=== PATIENT | female | born 1940 | race Caucasian/White ===

== ENCOUNTER 2020-08-01 12:37 | Inpatient (IN) | payer MEDICARE ==
[2020-08-01] MEDS ORDERED: Sodium Chloride 0.9% 2.5 ML Syringe FLUSH PRN ×2 (12:45→16:05)
[2020-08-01] MEDS ORDERED: Sodium Chloride 0.9% 10 ML Syringe FLUSH PRN (12:45)
[2020-08-01] MEDS ORDERED: Sodium Chloride 0.9% 1,000 ML IV ONE (12:45)
--- NOTE | 2020-08-01 12:54 | EDM.PDOC ---
ED HPI GENERAL MEDICAL PROBLEM - General Chief Complaint: Back Pain or Injury Stated Complaint: SHE FELL Time Seen by Provider: 08/01/20 12:40 Source of Information: Reports: Patient History Limitations: Reports: No Limitations - History of Present Illness INITIAL COMMENTS - FREE TEXT/NARRATIVE: HISTORY AND PHYSICAL: History of present illness: Patient is an 79-year-old female who presents to the emergency room by ambulance after a fall. Patient states 2 days ago she had fallen while in the bathroom, states she lost her balance. She was able to get up and go back to bed. During the fall she noticed some thoracic and lumbar back pain, states she does have chronic mild back pain due to a thoracic injury. Saturday morning her back started hurting "so bad I let myself to the ground". She was away from her cell phone and was not able to crawl to her phone due to the back pain, she laid on the floor for 2 days. Today her craft coordinator came for scheduled cleaning and f ound her. Patient has not eaten or drank over the past 2 days, has not had a bowel movement or voided. Patient denies any fever, chills, headache, change in vision, syncope or near syncope. Denies any chest pain, shortness of breath or cough. Denies any abdominal pain, nausea, vomiting, diarrhea, constipation or dysuria. Has not noted any blood in urine or stool. Patient has not eaten and drank in 2 days. Review of systems: As per history of present illness and below otherwise all systems reviewed and negative. Past medical history: As per history of present illness and as reviewed below otherwise noncontributory. Surgical history: As per history of present illness and as reviewed below otherwise noncontributory. Social history: See social history for further information Family history: As per history of present illness and as reviewed below otherwise noncontributory. Physical exam: General: Well developed and well nourished 79 year old female. Alert and orientated x 3. Nontoxic in appearance and in no acute distress. Vital signs are stable and have been reviewed by me. Nursing notes were reviewed. HEENT: Atraumatic, normocephalic, pupils equal and reactive bilaterally, negative for conjunctival pallor or scleral icterus, mucous membranes moist, trachea midline. No drooling or trismus noted. No meningeal signs. No hot potato voice noted. Lungs: Clear to auscultation bilaterally. No wheezes, rales, or rhonchi. Chest nontender. Normal work of breathing, no accessory muscles used. Heart: S1S2, regular rate and rhythm without overt murmur, gallops, or rubs. No JVD. No peripheral edema Abdomen: Soft, nondistended, nontender. Normoactive bowel sounds. Negative for masses or costovertebral tenderness. Pelvis: Stable nontender. C-spine/Back: No pinpoint vertebral tenderness upon palpation with the exception of the lower thoracic and upper lumbar region. No crepitus, step-offs or obvious deformities. Able to push down and lift her great toe up equally bilaterally. She is moving both lower extremities upon command on the bed. Denies any urinary or fecal incontinence. Denies any numbness, tingling or saddle paresthesia. No concerns of serious infection, fracture or cord compression, or cauda equina syndrome. Deep tendon reflexes brisk bilaterally. Genitourinary/Rectal: Good rectal tone. Hemoccult negative. Skin: Intact, warm, dry. No lesions or rashes noted. Hematologic: No petechiae or purpra. Mucosa appropriate color and normal nail bed color and refill. Extremities: Atraumatic, moves all extremities per self without difficulty or deficits, negative for cords or calf pain. Neurovascular unremarkable. Neuro: Awake, alert, oriented. Cranial nerves II through XII unremarkable. Cerebellum unremarkable. Motor and sensory unremarkable throughout. Exam nonfocal. Psychiatric: Mood and affect are appropriate. Normal thought process. Answering questions appropriately. Notes: *This patient was seen and evaluated during the 2019 SARS-CoV-2 novel coronavirus pandemic period. Community viral transmission is ongoing at time of this encounter and the emergency department is operating under pandemic response procedures. Patient is an 79-year-old female who presents to the emergency room by ambulance with complaints of back pain. She states she had fallen 2+ days ago resulting in pain in her lumbar and thoracic back. When she woke up the next day she had intense pain and had to sit herself on the ground. She denies hitting her head or having any loss of consciousness. She is not able to move or get up after she let herself down to the ground. Her cleaning lady had found her and called the ambulance. Patient states she has known T12 fracture and chronic back pain. She denies any numbness, tingling, saddle paresthesia. She denies any urinary or fecal incontinence. We did roll her and I assessed her back, she does have distal thoracic and upper lumbar discomfort with palpation although no obvious step-offs noted. She has good rectal tone and is moving her legs appropriately on the bed. We will do basic lab work and CTs of the spine due to her complex history. Patient does have a urinary tract infection, urine culture has been added. Head CT shows no evidence of acute intracranial trauma. Periventricular white matter changes consistent chronic microvascular disease. Diffuse volume loss. CT cervical spine shows no evidence of acute trauma. Multilevel degenerative changes. Compression screw transfixing remote type III odontoid fracture. Thoracic CT shows [id number] T8 vertebral body superior endplate c ompression deformity of unknown acuity. No prior exams for comparison. Mild T10 inferior endplate compression rim most likely remote. Remote severe T12 compression fracture with apex of kyphosis at this level. Multilevel degenerative changes. Lumbar CT shows mild L1 superior endplate compression deformity of unknown acuity. Acute fracture cannot be excluded. Correlate with pain specifically at this level. Grade 1 anterolisthesis L4 over L5. Patient reports she has known fractures of the thoracic spine and has chronic back pain. She reports she is tender with palpation although she is "always tender" and has discomfort chronically. She reports she is comfortable laying in bed without any movement. Given the CT findings I am unsure if these are acute or chronic. Regardless with the patient living at home alone, she will likely not do well at home with the amount of pain she is having in her back. I have talked with the patient about today's findings, in addition to providing specific details for plan of care. Reassessment at the time of disposition demonstrates that the patient is in no acute distress as long as she is not moving. We discussed admission for pain management and possible rehabilitation services. Dr. Wayne was consulted and is agreeable to keeping her for further care and management. Diagnostics: CBC, CMP, CPK, UA, troponin, EKG, head/cervical /thoracic and lumbar spine CT Therapeutics: IV fluids, Rocephin Impression: Multiple compression fractures Fall Weakness UTI Plan: Admission to Med/Surg Definitive disposition and diagnosis as appropriate pending reevaluation and review of above. Lower Back Pain Score (Numeric/FACES): 5 - Related Data Allergies Allergy/AdvReac Type Severity Reaction Status Date / Time No Known Allergies Allergy Verified 08/01/20 12:40 Home Meds: Home Meds . [No Known Home Meds] 08/01/20 [History] Past Medical History - Past Health History Medical/Surgical History: Denies Medical/Surgical History Musculoskeletal History: Reports: Fracture Psychiatric History: Reports: Addiction, Other (See Below) Other Psychiatric History: alcoholic - Infectious Disease History Infectious Disease History: Reports: Chicken Pox - Past Surgical History Musculoskeletal Surgical History: Reports: Other (See Below) Other Musculoskeletal Surgeries/Procedures:: cervical fracture with pin Social & Family History - Family History Family Medical History: No Pertinent Family History - Tobacco Use Tobacco Use Status *Q: Never Tobacco User - Caffeine Use Caffeine Use: Reports: None - Recreational Drug Use Recreational Drug Use: No ED ROS GENERAL - Review of Systems Review Of Systems: Comprehensive ROS is negative, except as noted in HPI. ED EXAM,LOWER BACK PAIN/INJURY - Physical Exam Exam: See Below (See dictation) Course - Vital Signs Last Recorded V/S: Last Vital Signs Temp 98 F 08/01/20 12:40 Pulse 92 08/01/20 14:42 Resp 16 08/01/20 14:42 BP 139/78 08/01/20 14:42 Pulse Ox 95 08/01/20 14:42 - Orders/Labs/Meds Orders: Active Orders 24 hr Category Date Time Status Admission Status [Patient Status] [ADT] Stat ADT 08/01/20 14:33 Active EKG Documentation Completion [RC] STAT Care 08/01/20 13:46 Active CORONAVIRUS COVID-19 JASKARAN [MOLEC] Stat Lab 08/01/20 14:34 Received CULTURE URINE [MREF] Stat Lab 08/01/20 14:33 Received Sodium Chloride 0.9% [Normal Saline] 1,000 ml Med 08/01/20 12:45 Active IV STAT Sodium Chloride 0.9% [Saline Flush] Med 08/01/20 12:45 Active 10 ml FLUSH ASDIRECTED PRN Sodium Chloride 0.9% [Saline Flush] Med 08/01/20 12:45 Active 2.5 ml FLUSH ASDIRECTED PRN Saline Lock Insert [OM.PC] Stat Oth 08/01/20 12:45 Ordered Medication Orders Sodium Chloride (Normal Saline) 1,000 mls @ 250 mls/hr IV STAT ONE Stop: 08/01/20 16:44 Last Admin: 08/01/20 13:27 Dose: 250 mls/hr Documented by: ERVIN Sodium Chloride (Sodium Chloride 0.9% 10 Ml Syringe) 10 ml FLUSH ASDIRECTED PRN PRN Reason: Keep Vein Open Last Admin: 08/01/20 13:27 Dose: 10 ml Documented by: ERVIN Sodium Chloride (Sodium Chloride 0.9% 2.5 Ml Syringe) 2.5 ml FLUSH ASDIRECTED PRN PRN Reason: Keep Vein Open Last Admin: 08/01/20 13:27 Dose: 2.5 ml Documented by: ERVIN Labs: Laboratory Tests 08/01/20 08/01/20 08/01/20 Range/Units 13:27 13:27 13:27 WBC 11.76 H (4.0-11.0) K/uL RBC 4.04 L (4.30-5.90) M/uL Hgb 14.0 (12.0-16.0) g/dL Hct 42.1 (36.0-46.0) % MCV 104.2 H (80.0-98.0) fL MCH 34.7 H (27.0-32.0) pg MCHC 33.3 (31.0-37.0) g/dL RDW Std Deviation 50.2 (28.0-62.0) fl RDW Coeff of Otilia 13 (11.0-15.0) % Plt Count 176 (150-400) K/uL MPV 10.40 (7.40-12.00) fL Neut % (Auto) 80.8 H (48.0-80.0) % Lymph % (Auto) 11.3 L (16.0-40.0) % [place] % (Auto) 7.7 (0.0-15.0) % Eos % (Auto) 0.0 (0.0-7.0) % Baso % (Auto) 0.2 (0.0-1.5) % Neut # (Auto) 9.5 H (1.4-5.7) K/uL Lymph # (Auto) 1.3 (0.6-2.4) K/uL Lajas # (Auto) 0.9 H (0.0-0.8) K/uL Eos # (Auto) 0.0 (0.0-0.7) K/uL Baso # (Auto) 0.0 (0.0-0.1) K/uL Nucleated RBC % 0.0 /100WBC Nucleated RBCs # 0 K/uL INR Sodium 138 (136-145) mmol/L Potassium 3.9 (3.5-5.1) mmol/L Chloride 102 (98-107) mmol/L Carbon Dioxide 20.7 L (21.0-32.0) mmol/L BUN 14 (7.0-18.0) mg/dL Creatinine 0.8 (0.6-1.0) mg/dL Est Cr Clr Drug Dosing 53.63 mL/min Estimated GFR (MDRD) > 60.0 ml/min Glucose 92 (74-106) mg/dL Lactic Acid 1.6 (0.4-2.0) mmol/L Calcium 8.4 L (8.5-10.1) mg/dL Total Bilirubin 1.8 H (0.2-1.0) mg/dL AST 57 H (15-37) IU/L ALT 41 (14-63) IU/L Alkaline Phosphatase 86 (46-116) U/L Creatine Kinase 105 (26-308) U/L Troponin I (0.000-0.056) ng/mL Total Protein 7.6 (6.4-8.2) g/dL Albumin 2.8 L (3.4-5.0) g/dL Globulin 4.8 H (2.6-4.0) g/dL Albumin/Globulin Ratio 0.6 L (0.9-1.6) Urine Color Urine Appearance Urine pH (5.0-8.0) Ur Specific [place] (1.001-1.035) Urine Protein (NEGATIVE) mg/dL Urine Glucose (UA) (NEGATIVE) mg/dL Urine Ketones (NEGATIVE) mg/dL Urine Occult Blood (NEGATIVE) Urine Nitrite (NEGATIVE) Urine Bilirubin (NEGATIVE) Urine Ictotest Urine Urobilinogen (<2.0) EU/dL Ur Leukocyte Esterase (NEGATIVE) Urine RBC (0-2/HPF) Urine WBC (0-5/HPF) Ur Epithelial Cells (NONE-FEW) Calcium Oxalate Crystal (NEGATIVE) Urine Bacteria (NEGATIVE) 08/01/20 08/01/2008/01/21 Range/Units 13:27 13:27 14:33 WBC (4.0-11.0) K/uL RBC (4.30-5.90) M/uL Hgb (12.0-16.0) g/dL Hct (36.0-46.0) % MCV (80.0-98.0) fL MCH (27.0-32.0) pg MCHC (31.0-37.0) g/dL RDW Std Deviation (28.0-62.0) fl RDW Coeff of Otilia (11.0-15.0) % Plt Count (150-400) K/uL MPV (7.40-12.00) fL Neut % (Auto) (48.0-80.0) % Lymph % (Auto) (16.0-40.0) % [place] % (Auto) (0.0-15.0) % Eos % (Auto) (0.0-7.0) % Baso % (Auto) (0.0-1.5) % Neut # (Auto) (1.4-5.7) K/uL Lymph # (Auto) (0.6-2.4) K/uL [place] # (Auto) (0.0-0.8) K/uL Eos # (Auto) (0.0-0.7) K/uL Baso # (Auto) (0.0-0.1) K/uL Nucleated RBC % /100WBC Nucleated RBCs # K/uL INR 1.14 Sodium (136-145) mmol/L Potassium (3.5-5.1) mmol/L Chloride (98-107) mmol/L Carbon Dioxide (21.0-32.0) mmol/L BUN (7.0-18.0) mg/dL Creatinine (0.6-1.0) mg/dL Est Cr Clr Drug Dosing mL/min Estimated GFR (MDRD) ml/min Glucose (74-106) mg/dL Lactic Acid (0.4-2.0) mmol/L Calcium (8.5-10.1) mg/dL Total Bilirubin (0.2-1.0) mg/dL AST (15-37) IU/L ALT (14-63) IU/L Alkaline Phosphatase (46-116) U/L Creatine Kinase (26-308) U/L Troponin I < 0.050 (0.000-0.056) ng/mL Total Protein (6.4-8.2) g/dL Albumin (3.4-5.0) g/dL Globulin (2.6-4.0) g/dL Albumin/Globulin Ratio (0.9-1.6) Urine Color YELLOW Urine Appearance SLT CLOUDY Urine pH 8.0 (5.0-8.0) Ur Specific [place] 1.020 (1.001-1.035) Urine Protein TRACE H (NEGATIVE) mg/dL Urine Glucose (UA) NEGATIVE (NEGATIVE) mg/dL Urine Ketones TRACE H (NEGATIVE) mg/dL Urine Occult Blood NEGATIVE (NEGATIVE) Urine Nitrite NEGATIVE (NEGATIVE) Urine Bilirubin MODERATE H (NEGATIVE) Urine Ictotest NEGATIVE Urine Urobilinogen 2.0 H (<2.0) EU/dL Ur Leukocyte Esterase MODERATE H (NEGATIVE) Urine RBC 0-2 (0-2/HPF) Urine WBC 5-10 (0-5/HPF) Ur Epithelial Cells FEW (NONE-FEW) Calcium Oxalate Crystal FEW (NEGATIVE) Urine Bacteria 4+ H (NEGATIVE) Meds: Medications Generic Name Dose Route Start Last Admin Trade Name Freq PRN Reason Stop Dose Admin Sodium Chloride 1,000 mls @ 250 mls/hr 08/01/20 12:45 08/01/20 13:27 Normal Saline IV 08/01/20 16:44 250 mls/hr STAT ONE Administration Sodium Chloride 10 ml 08/01/20 12:45 08/01/20 13:27 Sodium Chloride 0.9% 10 Ml Syringe FLUSH 10 ml ASDIRECTED PRN Administration Keep Vein Open Sodium Chloride 2.5 ml 08/01/20 12:45 08/01/20 13:27 Sodium Chloride 0.9% 2.5 Ml Syringe FLUSH 2.5 ml ASDIRECTED PRN Administration Keep Vein Open Departure - Departure Time of Disposition: 14:31 Disposition: Admitted As Inpatient 64 Clinical Impression: Weakness Vertebral compression fracture Qualifiers: Encounter type: initial encounter Fall Qualifiers: Encounter type: initial encounter Qualified Code(s): W19.XXXA - Unspecified fall, initial encounter Urinary tract infection Qualifiers: Urinary tract infection type: acute cystitis Hematuria presence: without hematuria Qualified Code(s): N30.00 - Acute cystitis without hematuria - Discharge Information Forms: ED Department Discharge Sepsis Event Note (ED) - Evaluation Sepsis Screening Result: No Definite Risk - Focused Exam Vital Signs: Vital Signs Temp Pulse Resp BP Pulse Ox 08/01/20 14:42 92 16 139/78 95 08/01/20 13:28 86 16 134/77 95 08/01/20 12:40 98 F 91 16 143/87 H 95 - My Orders Last 24 Hours: My Active Orders 08/01/20 12:45 Sodium Chloride 0.9% [Normal Saline] 1,000 ml IV STAT Sodium Chloride 0.9% [Saline Flush] 10 ml FLUSH ASDIRECTED PRN Sodium Chloride 0.9% [Saline Flush] 2.5 ml FLUSH ASDIRECTED PRN Saline Lock Insert [OM.PC] Stat 08/01/20 13:46 EKG Documentation Completion [RC] STAT 08/01/20 14:33 Admission Status [Patient Status] [ADT] Stat CULTURE URINE [MREF] Stat 08/01/20 14:34 CORONAVIRUS COVID-19 JASKARAN [MOLEC] Stat - Assessment/Plan Last 24 Hours: My Active Orders 08/01/20 12:45 Sodium Chloride 0.9% [Normal Saline] 1,000 ml IV STAT Sodium Chloride 0.9% [Saline Flush] 10 ml FLUSH ASDIRECTED PRN Sodium Chloride 0.9% [Saline Flush] 2.5 ml FLUSH ASDIRECTED PRN Saline Lock Insert [OM.PC] Stat 08/01/20 13:46 EKG Documentation Completion [RC] STAT 08/01/20 14:33 Admission Status [Patient Status] [ADT] Stat CULTURE URINE [MREF] Stat 08/01/20 14:34 CORONAVIRUS COVID-19 JASKARAN [MOLEC] Stat
--- NOTE | 2020-08-01 13:43 | CT ---
INDICATION: Pain following fall TECHNIQUE: CT cervical spine without contrast. COMPARISON: None FINDINGS: Vertebral alignment: Alignment is normal. Vertebrae: No acute fractures. Compression screw transfixing a remote type 3 odontoid fracture. Discs and facet joints: Multilevel degenerative changes. Extraspinal findings: Prevertebral soft tissues, visualized airway, and visualized lungs are unremarkable. IMPRESSION: No evidence of acute trauma. Multilevel degenerative changes. Compression screw transfixing remote type 3 odontoid fracture. Please note that all CT scans at this facility use dose modulation, iterative reconstruction, and/or weight-based dosing when appropriate to reduce radiation dose to as low as reasonably achievable. Dictated by Tc Best MD @ 08/01/2020 1:43:[address] Tc Best @ Aug 01 2020 1:43PM
--- NOTE | 2020-08-01 13:52 | CT ---
INDICATION: Pain following fall TECHNIQUE: CT thoracic spine without contrast. COMPARISON: None FINDINGS: Vertebral alignment: Alignment is normal. Vertebrae: Remote severe compression deformity T12 vertebral body with kyphosis. Mild T10 inferior endplate compression deformity most likely remote. [id number] T8 vertebral body compression deformity of unknown acuity. Discs and facet joints: Disc spaces and facets are within normal limits. Extraspinal findings: Left lower lobe airspace opacity. Cardiomegaly IMPRESSION: [id number] T8 vertebral body superior endplate compression deformity of unknown acuity. No prior exams for comparison. Mild T10 inferior endplate compression rim most likely remote. Remote severe T12 compression fracture with apex of kyphosis at this level. Multilevel degenerative changes. Left lower lobe airspace opacity. Megaly. Please note that all CT scans at this facility use dose modulation, iterative reconstruction, and/or weight-based dosing when appropriate to reduce radiation dose to as low as reasonably achievable. Dictated by Tc Best MD @ 08/01/2020 1:49:[address] Tc Best @ Aug 01 2020 1:49PM
--- NOTE | 2020-08-01 13:54 | CT ---
INDICATION: Pain following fall TECHNIQUE: CT lumbar spine without contrast. COMPARISON: None FINDINGS: Vertebral alignment: Grade 1 anterolisthesis L4 over L5. Vertebrae: Mild L1 superior endplate compression deformity of unknown acuity. Acute fracture cannot be excluded. Correlate with pain specifically at this level. Discs and facet joints: Disc spaces and facets are within normal limits. Extraspinal findings: Prevertebral soft tissues and visualized retroperitoneum are unremarkable. IMPRESSION: Mild L1 superior endplate compression deformity of unknown acuity. Acute fracture cannot be excluded. Correlate with pain specifically at this level. Grade 1 anterolisthesis L4 over L5. Please note that all CT scans at this facility use dose modulation, iterative reconstruction, and/or weight-based dosing when appropriate to reduce radiation dose to as low as reasonably achievable. Dictated by Tc Best MD @ 08/01/2020 1:53:[address] Tc Best @ Aug 01 2020 1:53PM
[2020-08-01 13:57] LABS: BLOOD UREA NITROGEN,BUN 14 mg/dL (7.0-18.0); CARBON DIOXIDE,CO2 20.7 mmol/L (21.0-32.0); CHLORIDE,CL 102 mmol/L (98-107); GLUCOSE RANDOM 92 mg/dL (74-106); POTASSIUM,K 3.9 mmol/L (3.5-5.1); SODIUM,NA 138 mmol/L (136-145)
--- NOTE | 2020-08-01 14:00 | CT ---
INDICATION: Fall TECHNIQUE: CT head without contrast. COMPARISON: None FINDINGS: CSF spaces: Within normal limits for age. Brain parenchyma: The jaimes-white differentiation is normal. No sign of mass, hemorrhage, or midline shift. Periventricular white matter changes consistent chronic microvascular disease. Diffuse volume loss. Skull base and calvarium: The visualized paranasal sinuses and mastoid air cells demonstrate no acute or significant findings. The visualized orbits are grossly unremarkable. No skull fractures. IMPRESSION: No evidence of acute intracranial trauma. Periventricular white matter changes consistent chronic microvascular disease. Diffuse volume loss. Please note that all CT scans at this facility use dose modulation, iterative reconstruction, and/or weight-based dosing when appropriate to reduce radiation dose to as low as reasonably achievable. Dictated by Tc Best MD @ 08/01/2020 1:58:[address] Tc Best @ Aug 01 2020 1:58PM
[2020-08-01] MEDS ORDERED: cefTRIAXone 1 GM in Premix Bag 1 BAG IV ONE (15:10)
--- NOTE | 2020-08-01 15:23 | PCM.HP.2 ---
H&P History of Present Illness - General Date of Service: 08/01/20 Admit Problem/Dx: Admission Diagnosis/Problem Admission Diagnosis/Problem Compression fracture of vertebra Source of Information: Patient History Limitations: Reports: No Limitations - History of Present Illness Initial Comments - Free Text/Narative: This 79-year-old female with past medical history of T12 fracture presented to the ED after a fall 2 days ago. She reports that she fell while in the bathroom after losing her balance. She was able to get back up and go back to bed. After the fall she did notice some lower back pain and reports that she does have this chronically due to history of T12 fracture. On Saturday she reports her back was hurting more that she left her after the wound and was away from cell phone and was unable to get to her phone call for help. She laid on the floor for approximately 2 days until her mechanical fitter came today and found her. She reports she has not eaten or drink over the last 2 days has not had bowel movements or voided. She denies any saddle paresthesias or incontinence of stool or urine. She denies any fevers chills headache. She denies any syncopal episodes. Denies any chest pain, shortness of breath or cough. She denies any abdominal pain nausea vomiting diarrhea black or bloody bowel movements. She denies hitting her head or any loss of consciousness. Denies any tobacco use or recreational drug use. She does drink 1-2 drinks of vodka nightly but son and her both deny any sort of withdrawals at any point. In the ER extensive imaging completed of spine due to back pain and fall. Cervical spine CT reveals multilevel degenerative changes. Compression screw transfixing remote type III odontoid fracture. Thoracic CT reveals mild to moderate T8 vertebral body superior endplate compression deformity of unknown acuity. Mild T10 inferior endplate compression room most likely remote. Remote severe T12 burst fracture with apex of kyphosis at this point multilevel degenerative changes left lower airspace opacity. Lumbar spine CT reveals mild L1 superior endplate compression deformity of unknown acuity acute fracture cannot be excluded. Grade 1 anterolisthesis L4 over L5. Head CT obtained which reveals no evidence of acute intracranial trauma. Periventricular white matter consistent chronic microvascular disease. Diffuse volume loss. Labs in the ER obtained which reveals mild leukocytosis 11,000 hemoglobin 14.0 hematocrit 42.1 INR 1.14. Sodium 38 potassium 3.9 bicarb 20.7. BUN and creatinine 14 and 0.8 respectively. Bilirubin 1.8 AST 57 ALT 41 alk phos 86 CPK obtained which was 105. Troponin negative. UA pending. In the ER she was treated with 1 L normal saline vital signs otherwise stable heart rate 86 blood pressure 134/77 respiratory rate 16 on room air satting 95%. Patient unable to ambulate due to severity of pain. Patient will be admitted inpatient for intractable back pain related to acute on chronic compression fractures of thoracic and lumbar spine. Son Antony presented to the ER room who helped some with history. He reports that they just went shopping on Saturday evening and have not seen her since. They are in agreement that rehabilitation if she is unable to be up care of herself would be the best option at this point. He will discuss with brother as well. Patient does live alone after her approximately 1 year ago. Lower Back Pain Score (Numeric/FACES): 5 - Related Data Allergies/Adverse Reactions: Allergies Allergy/AdvReac Type Severity Reaction Status Date / Time No Known Allergies Allergy Verified 08/01/20 12:40 Home Medications: Home Meds . [No Known Home Meds] 08/01/20 [History] Past Medical History - Past Health History Medical/Surgical History: Denies Medical/Surgical History Cardiovascular History: Reports: None. Denies: Afib, Blood Clots/VTE/DVT, CAD, GA, Stents Respiratory History: Reports: None. Denies: Asthma, COPD, SOB Gastrointestinal History: Reports: None. Denies: GERD Musculoskeletal History: Reports: Fracture (thoracic) Psychiatric History: Reports: Depression Endocrine/Metabolic History: Reports: None. Denies: Diabetes, Type II, Obesity/BMI 30+ - Infectious Disease History Infectious Disease History: Reports: Chicken Pox - Past Surgical History Female Surgical History: Reports: Section (x3) Musculoskeletal Surgical History: Reports: Other (See Below) Other Musculoskeletal Surgeries/Procedures:: cervical fracture with pin, ORIF hip Social & Family History - Family History Family Medical History: No Pertinent Family History - Tobacco Use Tobacco Use Status *Q: Never Tobacco User - Caffeine Use Caffeine Use: Reports: None - Alcohol Use Alcohol Use History: Yes Days Per Week of Alcohol Use: 7 Number of Drinks Per Day: 2 Total Drinks Per Week: 14 Alcohol Use Frequency: Daily - Recreational Drug Use Recreational Drug Use: No - Living Situation & Occupation Living situation: Reports: , Alone Occupation: Retired Social History Comment: two sons in town and has mechanical 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 Denies: Fever, Chills, Malaise, Weakness HEENT: Reports: No Symptoms. Denies: Headaches, Sinus Congestion, Vertigo Pulmonary: Reports: No Symptoms. Denies: Shortness of Breath Cardiovascular: Reports: No Symptoms. Denies: Chest Pain, Palpitations Gastrointestinal: Reports: No Symptoms. Denies: Abdominal Pain, Black Stool, Bloody Stool, Diarrhea, Nausea, Vomiting Genitourinary: Reports: No Symptoms. Denies: Dysuria, Frequency, Burning, Incontinence, Retention Musculoskeletal: Reports: Back Pain (across lower back, worsened with movement) Skin: Reports: No Symptoms. Denies: Wound Psychiatric: Reports: No Symptoms Neurological: Reports: Difficulty Walking (Due to low back pain). Denies: Paresthesia, Weakness Hematologic/Lymphatic: Reports: No Symptoms Immunologic: Reports: No Symptoms Exam - Exam Exam: See Below - Vital Signs Vital Signs: Last Vital Signs Temp 98 F 08/01/20 12:40 Pulse 92 08/01/20 14:42 Resp 16 08/01/20 14:42 BP 139/78 08/01/20 14:42 Pulse Ox 95 08/01/20 14:42 Weight: 63.503 kg - Exam General: Alert, Oriented, Cooperative, Other (Very hard of hearing hearing aids not present with patient) HEENT: Conjunctiva Clear, Posterior Pharynx Clear. No: Mucosa Moist & [place] (Dry) Lungs: Clear to Auscultation, Normal Respiratory Effort Cardiovascular: Regular Rate, Regular Rhythm. No: Irregular Rhythm, Tachycardia, Systolic Murmur GI/Abdominal Exam: Normal Bowel Sounds. No: Soft, Non-Tender Rectal (Female) Exam: Normal Rectal Tone Back Exam: Decreased Range of Motion, Vertebral Tenderness (Lumbar spine). No: Full Range of Motion, CVA Tenderness (L), CVA Tenderness (R) Extremities: Normal Inspection, Normal Range of Motion, Non-Tender, No Pedal Edema Neurological: Reflexes Equal Bilateral, Strength Equal Bilateral, Other (Pain elicited on straight leg raise of right leg. No numbness or tingling noted to lower extremities pain noted to patient of lumbar spine and and paraspinal as well in the musculature. No muscle spasms noted). No: Normal Gait Neuro Extensive - Mental Status: Alert, Oriented x3 Neuro Extensive - Motor, Sensory, Reflexes: CN II-XII Intact, Normal Reflexes. No: Normal Gait Psychiatric: Alert, Normal Affect, Normal Mood. No: Hallucinations, Withdrawal Symptoms - Patient Data Lab Results Last 24 hrs: Laboratory Results - last 24 hr 08/01/20 08/01/20 08/01/20 Range/Units 13:27 13:27 13:27 WBC 11.76 H (4.0-11.0) K/uL RBC 4.04 L (4.30-5.90) M/uL Hgb 14.0 (12.0-16.0) g/dL Hct 42.1 (36.0-46.0) % MCV 104.2 H (80.0-98.0) fL MCH 34.7 H (27.0-32.0) pg MCHC 33.3 (31.0-37.0) g/dL RDW Std Deviation 50.2 (28.0-62.0) fl RDW Coeff of Otilia 13 (11.0-15.0) % Plt Count 176 (150-400) K/uL MPV 10.40 (7.40-12.00) fL Neut % (Auto) 80.8 H (48.0-80.0) % Lymph % (Auto) 11.3 L (16.0-40.0) % [place] % (Auto) 7.7 (0.0-15.0) % Eos % (Auto) 0.0 (0.0-7.0) % Baso % (Auto) 0.2 (0.0-1.5) % Neut # (Auto) 9.5 H (1.4-5.7) K/uL Lymph # (Auto) 1.3 (0.6-2.4) K/uL [place] # (Auto) 0.9 H (0.0-0.8) K/uL Eos # (Auto) 0.0 (0.0-0.7) K/uL Baso # (Auto) 0.0 (0.0-0.1) K/uL Nucleated RBC % 0.0 /100WBC Nucleated RBCs # 0 K/uL INR Sodium 138 (136-145) mmol/L Potassium 3.9 (3.5-5.1) mmol/L Chloride 102 (98-107) mmol/L Carbon Dioxide 20.7 L (21.0-32.0) mmol/L BUN 14 (7.0-18.0) mg/dL Creatinine 0.8 (0.6-1.0) mg/dL Est Cr Clr Drug Dosing 53.63 mL/min Estimated GFR (MDRD) > 60.0 ml/min Glucose 92 (74-106) mg/dL Lactic Acid 1.6 (0.4-2.0) mmol/L Calcium 8.4 L (8.5-10.1) mg/dL Total Bilirubin 1.8 H (0.2-1.0) mg/dL AST 57 H (15-37) IU/L ALT 41 (14-63) IU/L Alkaline Phosphatase 86 (46-116) U/L Creatine Kinase 105 (26-308) U/L Troponin I (0.000-0.056) ng/mL Total Protein 7.6 (6.4-8.2) g/dL Albumin 2.8 L (3.4-5.0) g/dL Globulin 4.8 H (2.6-4.0) g/dL Albumin/Globulin Ratio 0.6 L (0.9-1.6) Urine Color Urine Appearance Urine pH (5.0-8.0) Ur Specific [place] (1.001-1.035) Urine Protein (NEGATIVE) mg/dL Urine Glucose (UA) (NEGATIVE) mg/dL Urine Ketones (NEGATIVE) mg/dL Urine Occult Blood (NEGATIVE) Urine Nitrite (NEGATIVE) Urine Bilirubin (NEGATIVE) Urine Ictotest Urine Urobilinogen (<2.0) EU/dL Ur Leukocyte Esterase (NEGATIVE) Urine RBC (0-2/HPF) Urine WBC (0-5/HPF) Ur Epithelial Cells (NONE-FEW) Calcium Oxalate Crystal (NEGATIVE) Urine Bacteria (NEGATIVE) 08/01/20 08/01/20 08/01/20 Range/Units 13:27 13:27 14:33 WBC (4.0-11.0) K/uL RBC (4.30-5.90) M/uL Hgb (12.0-16.0) g/dL Hct (36.0-46.0) % MCV (80.0-98.0) fL MCH (27.0-32.0) pg MCHC (31.0-37.0) g/dL RDW Std Deviation (28.0-62.0) fl RDW Coeff of Otilia (11.0-15.0) % Plt Count (150-400) K/uL MPV (7.40-12.00) fL Neut % (Auto) (48.0-80.0) % Lymph % (Auto) (16.0-40.0) % [place] % (Auto) (0.0-15.0) % Eos % (Auto) (0.0-7.0) % Baso % (Auto) (0.0-1.5) % Neut # (Auto) (1.4-5.7) K/uL Lymph # (Auto) (0.6-2.4) K/uL [place] # (Auto) (0.0-0.8) K/uL Eos # (Auto) (0.0-0.7) K/uL Baso # (Auto) (0.0-0.1) K/uL Nucleated RBC % /100WBC Nucleated RBCs # K/uL INR 1.14 Sodium (136-145) mmol/L Potassium (3.5-5.1) mmol/L Chloride (98-107) mmol/L Carbon Dioxide (21.0-32.0) mmol/L BUN (7.0-18.0) mg/dL Creatinine (0.6-1.0) mg/dL Est Cr Clr Drug Dosing mL/min Estimated GFR (MDRD) ml/min Glucose (74-106) mg/dL Lactic Acid (0.4-2.0) mmol/L Calcium (8.5-10.1) mg/dL Total Bilirubin (0.2-1.0) mg/dL AST (15-37) IU/L ALT (14-63) IU/L Alkaline Phosphatase (46-116) U/L Creatine Kinase (26-308) U/L Troponin I < 0.050 (0.000-0.056) ng/mL Total Protein (6.4-8.2) g/dL Albumin (3.4-5.0) g/dL Globulin (2.6-4.0) g/dL Albumin/Globulin Ratio (0.9-1.6) Urine Color YELLOW Urine Appearance SLT CLOUDY Urine pH 8.0 (5.0-8.0) Ur Specific [place] 1.020 (1.001-1.035) Urine Protein TRACE H (NEGATIVE) mg/dL Urine Glucose (UA) NEGATIVE (NEGATIVE) mg/dL Urine Ketones TRACE H (NEGATIVE) mg/dL Urine Occult Blood NEGATIVE (NEGATIVE) Urine Nitrite NEGATIVE (NEGATIVE) Urine Bilirubin MODERATE H (NEGATIVE) Urine Ictotest NEGATIVE Urine Urobilinogen 2.0 H (<2.0) EU/dL Ur Leukocyte Esterase MODERATE H (NEGATIVE) Urine RBC 0-2 (0-2/HPF) Urine WBC 5-10 (0-5/HPF) Ur Epithelial Cells FEW (NONE-FEW) Calcium Oxalate Crystal FEW (NEGATIVE) Urine Bacteria 4+ H (NEGATIVE) Result Diagrams: 08/01/20 13:27 08/01/20 13:27 Sepsis Event Note - Evaluation Sepsis Screening Result: No Definite Risk - Focused Exam Vital Signs: Vital Signs Temp Pulse Resp BP Pulse Ox 08/01/20 14:42 92 16 139/78 95 08/01/20 13:28 86 16 134/77 95 08/01/20 12:40 98 F 91 16 143/87 H 95 - Problem List (1) Fall SNOMED Code(s): 0247409, 296296103 ICD Code: W19.XXXA - UNSPECIFIED FALL, INITIAL ENCOUNTER Status: Acute Current Visit: Yes Qualifiers: Encounter type: initial encounter Qualified Code(s): W19.XXXA - Unspecified fall, initial encounter (2) Urinary tract infection SNOMED Code(s): 85931078 ICD Code: N39.0 - URINARY TRACT INFECTION, SITE NOT SPECIFIED Status: Acute Current Visit: Yes Qualifiers: Urinary tract infection type: acute cystitis Hematuria presence: without hematuria Qualified Code(s): N30.00 - Acute cystitis without hematuria (3) Anterolisthesis SNOMED Code(s): 666036946 ICD Code: M43.10 - SPONDYLOLISTHESIS, SITE UNSPECIFIED Status: Acute Current Visit: Yes (4) Fracture of lumbar spine without cord injury SNOMED Code(s): 51757549, 162470995 ICD Code: S32.009A - UNSP FRACTURE OF UNSP LUMBAR VERTEBRA, INIT FOR CLOS FX Status: Acute Current Visit: Yes (5) Self-care deficit SNOMED Code(s): 301388272 ICD Code: Z78.9 - OTHER SPECIFIED HEALTH STATUS Status: Acute Current Visit: Yes (6) Thoracic compression fracture SNOMED Code(s): 455645419 ICD Code: S22.000A - WEDGE COMPRESSION FRACTURE OF UNSP THORACIC VERTEBRA, INIT Status: Chronic Current Visit: Yes Qualifiers: Thoracic vertebra fracture level: T12 (7) Depression SNOMED Code(s): 04351170 ICD Code: F32.9 - MAJOR DEPRESSIVE DISORDER, SINGLE EPISODE, UNSPECIFIED Status: Chronic Current Visit: Yes Problem List Initiated/Reviewed/Updated: Yes Orders Last 24hrs: Active Orders 24 hr Category Date Time Status Admission Status [Patient Status] [ADT] Stat ADT 08/01/20 14:33 Active EKG Documentation Completion [RC] STAT Care 08/01/20 13:46 Active CORONAVIRUS COVID-19 JASKARAN [MOLEC] Stat Lab 08/01/20 14:22 Ordered CULTURE URINE [MREF] Stat Lab 08/01/20 14:33 Received Sodium Chloride 0.9% [Normal Saline] 1,000 ml Med 08/01/20 12:45 Active IV STAT Sodium Chloride 0.9% [Saline Flush] Med 08/01/20 12:45 Active 10 ml FLUSH ASDIRECTED PRN Sodium Chloride 0.9% [Saline Flush] Med 08/01/20 12:45 Active 2.5 ml FLUSH ASDIRECTED PRN cefTRIAXone [Rocephin in Dextrose,Iso-Osm 1 GM/50 ML] 1 Med 08/01/20 15:10 Active gm Premix Bag 1 bag IV ONETIME Saline Lock Insert [OM.PC] Stat Oth 08/01/20 12:45 Ordered Medication Orders Sodium Chloride (Normal Saline) 1,000 mls @ 250 mls/hr IV STAT ONE Stop: 08/01/20 16:44 Last Admin: 08/01/20 13:27 Dose: 250 mls/hr Documented by: ERVIN Ceftriaxone Sodium/Dextrose 1 (gm/ Premix) 50 mls @ 100 mls/hr IV ONETIME ONE Stop: 08/01/20 15:39 Sodium Chloride (Sodium Chloride 0.9% 10 Ml Syringe) 10 ml FLUSH ASDIRECTED PRN PRN Reason: Keep Vein Open Last Admin: 08/01/20 13:27 Dose: 10 ml Documented by: ERVIN Sodium Chloride (Sodium Chloride 0.9% 2.5 Ml Syringe) 2.5 ml FLUSH ASDIRECTED PRN PRN Reason: Keep Vein Open Last Admin: 08/01/20 13:27 Dose: 2.5 ml Documented by: ERVIN Assessment/Plan Comment:: This 79-year-old female admitted with recent fall along with acute on chronic low back pain 1. Acute on chronic back pain -T12 compression fracture was noted previously, T10 appears to be remote as well. New L1 endplate compression fracture along with anterolisthesis of L 4 on L5 is noted. -Patient tenderness to spine is more noted lumbar spine. No neurological findings. -No saddle paresthesias noted -Pain control with Tylenol as needed along with low dose Motrin - Consider oxycodone for severe pain -PT to evaluate and treat -Consult case management for likely placement due to inability to care for herself at this time at home with increasing back pain. -Supplement calcium and vitamin D - UA reveals UTI - Monitor on telemetry, unsure if syncopal event. She reports losing balance. 2. Opacity noted left lung base -No symptoms of pneumonia -We will obtain chest x-ray 3. UTI - UC pending - Continue Rocephin 4. Daily alcohol use -Denies withdrawal in the past -Thiamine and folic acid supplementation daily -Monitor CIWAA in case of withdrawals VTE prophylaxis: Heparin Consults: Case Management/social work for placement CODE STATUS: Full code Dispo: 2-3 days pending improvement
[2020-08-01] MEDS ORDERED: Ibuprofen 200 MG Tab PO PRN (16:05)
[2020-08-01] MEDS ORDERED: Polyethylene Glycol 3350 Powder 17 GM Packet PO PRN (16:05)
[2020-08-01] MEDS ORDERED: Ondansetron 4 MG/2 ML SDV IVPUSH PRN (16:05)
[2020-08-01] MEDS ORDERED: Acetaminophen 325 MG Tab PO PRN (16:05)
[2020-08-01] MEDS ORDERED: Bisacodyl 10 MG Supp RECTAL PRN (16:17)
[2020-08-01] MEDS ORDERED: LORazepam 2 MG/ML SDV IVPUSH PRN (16:20)
--- NOTE | 2020-08-01 16:54 | CR ---
INDICATION: Opacity on CT scan TECHNIQUE: Chest 1 view. COMPARISON: CT scan abdomen pelvis 08/01/2020 FINDINGS: Cardiovascular and mediastinum: Megaly. Mediastinum is within normal limits. Lungs and pleural space: Left lower lobe opacity. No sign of pleural effusion. No pneumothorax. Bones and soft tissues: No significant findings. IMPRESSION: Left lower lobe opacity worrisome for pneumonia. Follow-up recommended. Dictated by Tc Best MD @ 08/01/2020 4:52:[address] Tc Best @ Aug 01 2020 4:52PM
[2020-08-01] MEDS: Heparin Sodium 5,000 Units/ML Vial SUBCUT SCH (16:58)
[2020-08-01] MEDS: Sodium Chloride 0.9% 1,000 ML IV SCH (16:58)
--- NOTE | 2020-08-01 20:10 | PCM.EKG ---
#1 Interpretation EKG Date: 08/01/20 Time: 14:35 Rhythm: NSR Rate (Beats/Min): 82 [place]: Normal P-Wave: Present QRS: Normal ST-T: Other (No elevation or depression T wave inversions in III, avf, V4-V6) QT: Normal Comparison: No Change (12/10/15) EKG Interpretation Comments: Sinus Rhythm with Inferior and Lateral T wave inversions unchanged
[2020-08-01] MEDS: Thiamine 100 MG Tab PO SCH (21:00)
[2020-08-01] MEDS: Docusate Sodium 100 MG Cap PO SCH (21:00)
[2020-08-01] MEDS: Folic Acid 1 MG Tab PO SCH (21:00)
[2020-08-01] MEDS: Azithromycin 250 MG Tab PO SCH (21:00)
[2020-08-02] MEDS: Sodium Chloride 0.9% 1,000 ML IV SCH ×3 (00:14→20:34)
[2020-08-02] MEDS: Heparin Sodium 5,000 Units/ML Vial SUBCUT SCH ×2 (04:36→16:15)
[2020-08-02 06:14] LABS: BLOOD UREA NITROGEN,BUN 14 mg/dL (7.0-18.0); CARBON DIOXIDE,CO2 20.5 mmol/L (21.0-32.0); CHLORIDE,CL 105 mmol/L (98-107); GLUCOSE RANDOM 89 mg/dL (74-106); POTASSIUM,K 3.3 mmol/L (3.5-5.1); SODIUM,NA 139 mmol/L (136-145)
--- NOTE | 2020-08-02 08:03 | PCM.PN ---
- General Info Date of Service: 08/02/20 Admission Dx/Problem (Free Text): Admission Diagnosis/Problem Admission Diagnosis/Problem Compression fracture of vertebra Subjective Update: Continues to have low back pain especially with movement of waist and legs. Reports no pain when she is at rest. Denies any chest pain shortness of breath. Reports mild cough with pleuritic pain. No other concerns this morning. Functional Status: Reports: Pain Controlled, Tolerating Diet, Urinating. Denies: Ambulating - Review of Systems General: Reports: Weakness HEENT: Reports: No Symptoms. Denies: Headaches, Sore Throat, Visual Changes Pulmonary: Reports: No Symptoms. Denies: Shortness of Breath Cardiovascular: Reports: No Symptoms. Denies: Chest Pain, Palpitations Gastrointestinal: Reports: No Symptoms. Denies: Abdominal Pain, Nausea, Vomiting Genitourinary: Reports: No Symptoms. Denies: Dysuria, Frequency Musculoskeletal: Reports: Back Pain Skin: Reports: No Symptoms Neurological: Reports: No Symptoms. Denies: Paresthesia, Tingling Psychiatric: Reports: No Symptoms - Patient Data Vitals - Most Recent: Last Vital Signs Temp 97.3 F 08/02/20 04:00 Pulse 86 08/02/20 04:00 Resp 17 08/02/20 04:00 BP 153/85 H 08/02/20 04:00 Pulse Ox 95 08/02/20 04:00 Weight - Most Recent: 58.5 kg I&O - Last 24 Hours: Intake & Output 08/01/20 08/02/20 08/02/20 22:59 06:59 14:59 Intake Total 350 Balance 350 Lab Results Last 24 Hours: Laboratory Results - last 24 hr 08/01/20 08/01/20 08/01/20 Range/Units 13:27 13:27 13:27 WBC 11.76 H (4.0-11.0) K/uL RBC 4.04 L (4.30-5.90) M/uL Hgb 14.0 (12.0-16.0) g/dL Hct 42.1 (36.0-46.0) % MCV 104.2 H (80.0-98.0) fL MCH 34.7 H (27.0-32.0) pg MCHC 33.3 (31.0-37.0) g/dL RDW Std Deviation 50.2 (28.0-62.0) fl RDW Coeff of Otilia 13 (11.0-15.0) % Plt Count 176 (150-400) K/uL MPV 10.40 (7.40-12.00) fL Neut % (Auto) 80.8 H (48.0-80.0) % Lymph % (Auto) 11.3 L (16.0-40.0) % Lanier % (Auto) 7.7 (0.0-15.0) % Eos % (Auto) 0.0 (0.0-7.0) % Baso % (Auto) 0.2 (0.0-1.5) % Neut # (Auto) 9.5 H (1.4-5.7) K/uL Lymph # (Auto) 1.3 (0.6-2.4) K/uL Lanier # (Auto) 0.9 H (0.0-0.8) K/uL Eos # (Auto) 0.0 (0.0-0.7) K/uL Baso # (Auto) 0.0 (0.0-0.1) K/uL Nucleated RBC % 0.0 /100WBC Nucleated RBCs # 0 K/uL INR Sodium 138 (136-145) mmol/L Potassium 3.9 (3.5-5.1) mmol/L Chloride 102 (98-107) mmol/L Carbon Dioxide 20.7 L (21.0-32.0) mmol/L BUN 14 (7.0-18.0) mg/dL Creatinine 0.8 (0.6-1.0) mg/dL Est Cr Clr Drug Dosing 53.63 mL/min Estimated GFR (MDRD) > 60.0 ml/min Glucose 92 (74-106) mg/dL Lactic Acid 1.6 (0.4-2.0) mmol/L Calcium 8.4 L (8.5-10.1) mg/dL Magnesium (1.8-2.4) mg/dL Total Bilirubin 1.8 H (0.2-1.0) mg/dL AST 57 H (15-37) IU/L ALT 41 (14-63) IU/L Alkaline Phosphatase 86 (46-116) U/L Creatine Kinase 105 (26-308) U/L Troponin I (0.000-0.056) ng/mL Total Protein 7.6 (6.4-8.2) g/dL Albumin 2.8 L (3.4-5.0) g/dL Globulin 4.8 H (2.6-4.0) g/dL Albumin/Globulin Ratio 0.6 L (0.9-1.6) Urine Color Urine Appearance Urine pH (5.0-8.0) Ur Specific Culver (1.001-1.035) Urine Protein (NEGATIVE) mg/dL Urine Glucose (UA) (NEGATIVE) mg/dL Urine Ketones (NEGATIVE) mg/dL Urine Occult Blood (NEGATIVE) Urine Nitrite (NEGATIVE) Urine Bilirubin (NEGATIVE) Urine Ictotest Urine Urobilinogen (<2.0) EU/dL Ur Leukocyte Esterase (NEGATIVE) Urine RBC (0-2/HPF) Urine WBC (0-5/HPF) Ur Epithelial Cells (NONE-FEW) Calcium Oxalate Crystal (NEGATIVE) Urine Bacteria (NEGATIVE) SARS-CoV-2 RNA (JASKARAN) (NEGATIVE) 08/01/20 08/01/20 08/01/20 Range/Units 13:27 13:27 14:33 WBC (4.0-11.0) K/uL RBC (4.30-5.90) M/uL Hgb (12.0-16.0) g/dL Hct (36.0-46.0) % MCV (80.0-98.0) fL MCH (27.0-32.0) pg MCHC (31.0-37.0) g/dL RDW Std Deviation (28.0-62.0) fl RDW Coeff of Otilia (11.0-15.0) % Plt Count (150-400) K/uL MPV (7.40-12.00) fL Neut % (Auto) (48.0-80.0) % Lymph % (Auto) (16.0-40.0) % Lanier % (Auto) (0.0-15.0) % Eos % (Auto) (0.0-7.0) % Baso % (Auto) (0.0-1.5) % Neut # (Auto) (1.4-5.7) K/uL Lymph # (Auto) (0.6-2.4) K/uL Lanier # (Auto) (0.0-0.8) K/uL Eos # (Auto) (0.0-0.7) K/uL Baso # (Auto) (0.0-0.1) K/uL Nucleated RBC % /100WBC Nucleated RBCs # K/uL INR 1.14 Sodium (136-145) mmol/L Potassium (3.5-5.1) mmol/L Chloride (98-107) mmol/L Carbon Dioxide (21.0-32.0) mmol/L BUN (7.0-18.0) mg/dL Creatinine (0.6-1.0) mg/dL Est Cr Clr Drug Dosing mL/min Estimated GFR (MDRD) ml/min Glucose (74-106) mg/dL Lactic Acid (0.4-2.0) mmol/L Calcium (8.5-10.1) mg/dL Magnesium (1.8-2.4) mg/dL Total Bilirubin (0.2-1.0) mg/dL AST (15-37) IU/L ALT (14-63) IU/L Alkaline Phosphatase (46-116) U/L Creatine Kinase (26-308) U/L Troponin I < 0.050 (0.000-0.056) ng/mL Total Protein (6.4-8.2) g/dL Albumin (3.4-5.0) g/dL Globulin (2.6-4.0) g/dL Albumin/Globulin Ratio (0.9-1.6) Urine Color YELLOW Urine Appearance SLT CLOUDY Urine pH 8.0 (5.0-8.0) Ur Specific Culver 1.020 (1.001-1.035) Urine Protein TRACE H (NEGATIVE) mg/dL Urine Glucose (UA) NEGATIVE (NEGATIVE) mg/dL Urine Ketones TRACE H (NEGATIVE) mg/dL Urine Occult Blood NEGATIVE (NEGATIVE) Urine Nitrite NEGATIVE (NEGATIVE) Urine Bilirubin MODERATE H (NEGATIVE) Urine Ictotest NEGATIVE Urine Urobilinogen 2.0 H (<2.0) EU/dL Ur Leukocyte Esterase MODERATE H (NEGATIVE) Urine RBC 0-2 (0-2/HPF) Urine WBC 5-10 (0-5/HPF) Ur Epithelial Cells FEW (NONE-FEW) Calcium Oxalate Crystal FEW (NEGATIVE) Urine Bacteria 4+ H (NEGATIVE) SARS-CoV-2 RNA (JASKARAN) (NEGATIVE) 08/01/20 08/02/20 08/02/20 Range/Units 14:34 05:30 05:30 WBC 9.39 (4.0-11.0) K/uL RBC 3.49 L (4.30-5.90) M/uL Hgb 12.3 (12.0-16.0) g/dL Hct 36.5 (36.0-46.0) % MCV 104.6 H (80.0-98.0) fL MCH 35.2 H (27.0-32.0) pg MCHC 33.7 (31.0-37.0) g/dL RDW Std Deviation 50.7 (28.0-62.0) fl RDW Coeff of Otilia 14 (11.0-15.0) % Plt Count 153 (150-400) K/uL MPV 10.70 (7.40-12.00) fL Neut % (Auto) 57.8 (48.0-80.0) % Lymph % (Auto) 28.5 (16.0-40.0) % Lanier % (Auto) 12.5 (0.0-15.0) % Eos % (Auto) 0.9 (0.0-7.0) % Baso % (Auto) 0.3 (0.0-1.5) % Neut # (Auto) 5.4 (1.4-5.7) K/uL Lymph # (Auto) 2.7 H (0.6-2.4) K/uL Lanier # (Auto) 1.2 H (0.0-0.8) K/uL Eos # (Auto) 0.1 (0.0-0.7) K/uL Baso # (Auto) 0.0 (0.0-0.1) K/uL Nucleated RBC % 0.0 /100WBC Nucleated RBCs # 0 K/uL INR Sodium 139 (136-145) mmol/L Potassium 3.3 L (3.5-5.1) mmol/L Chloride 105 (98-107) mmol/L Carbon Dioxide 20.5 L (21.0-32.0) mmol/L BUN 14 (7.0-18.0) mg/dL Creatinine 0.7 (0.6-1.0) mg/dL Est Cr Clr Drug Dosing 58.21 mL/min Estimated GFR (MDRD) > 60.0 ml/min Glucose 89 (74-106) mg/dL Lactic Acid (0.4-2.0) mmol/L Calcium 7.6 L (8.5-10.1) mg/dL Magnesium 1.3 L (1.8-2.4) mg/dL Total Bilirubin (0.2-1.0) mg/dL AST (15-37) IU/L ALT (14-63) IU/L Alkaline Phosphatase (46-116) U/L Creatine Kinase (26-308) U/L Troponin I (0.000-0.056) ng/mL Total Protein (6.4-8.2) g/dL Albumin (3.4-5.0) g/dL Globulin (2.6-4.0) g/dL Albumin/Globulin Ratio (0.9-1.6) Urine Color Urine Appearance Urine pH (5.0-8.0) Ur Specific Culver (1.001-1.035) Urine Protein (NEGATIVE) mg/dL Urine Glucose (UA) (NEGATIVE) mg/dL Urine Ketones (NEGATIVE) mg/dL Urine Occult Blood (NEGATIVE) Urine Nitrite (NEGATIVE) Urine Bilirubin (NEGATIVE) Urine Ictotest Urine Urobilinogen (<2.0) EU/dL Ur Leukocyte Esterase (NEGATIVE) Urine RBC (0-2/HPF) Urine WBC (0-5/HPF) Ur Epithelial Cells (NONE-FEW) Calcium Oxalate Crystal (NEGATIVE) Urine Bacteria (NEGATIVE) SARS-CoV-2 RNA (JASKARAN) NEGATIVE (NEGATIVE) Med Orders - Current: Current Medications Acetaminophen (Acetaminophen 325 Mg Tab) 650 mg PO Q4H PRN PRN Reason: Pain (mild 1-3) Azithromycin (Azithromycin 250 Mg Tab) 500 mg PO Q24H [facility] Last Admin: 08/01/20 21:00 Dose: 500 mg Documented by: Bisacodyl (Bisacodyl 10 Mg Supp) 10 mg RECTAL DAILY PRN PRN Reason: if no BM in 3 days Calcium Carbonate (Calcium Carbonate/Vitamin D3 1500 Mg-400 Units Tab) 1 tab PO DAILY [facility] Docusate Sodium (Docusate Sodium 100 Mg Cap) 100 mg PO BID [facility] Last Admin: 08/01/20 21:00 Dose: 100 mg Documented by: Folic Acid (Folic Acid 1 Mg Tab) 1 mg PO BEDTIME [facility] Last Admin: 08/01/20 21:00 Dose: 1 mg Documented by: Heparin Sodium (Porcine) (Heparin Sodium 5,000 Units/Ml Vial) 5,000 units SUBCUT Q12H [facility] Last Admin: 08/02/20 04:36 Dose: 5,000 units Documented by: Sodium Chloride (Normal Saline) 1,000 mls @ 125 mls/hr IV Q8H [facility] Last Admin: 08/02/20 00:14 Dose: 125 mls/hr Documented by: Ceftriaxone Sodium/Dextrose 1 (gm/ Premix) 50 mls @ 100 mls/hr IV Q24H [facility] Ibuprofen (Ibuprofen 200 Mg Tab) 200 mg PO Q6H PRN PRN Reason: Pain (mild 1-3) Lorazepam (Lorazepam 2 Mg/Ml Sdv) 0 mg IVPUSH Q2H PRN; Protocol PRN Reason: CIWAA assessment Ondansetron HCl (Ondansetron 4 Mg/2 Ml Sdv) 4 mg IVPUSH Q4H PRN PRN Reason: Nausea Oxycodone HCl (Oxycodone 5 Mg Tab) 5 mg PO Q6H PRN PRN Reason: Pain (moderate 4-6) Polyethylene Glycol (Polyethylene Glycol 3350 Powder 17 Gm Packet) 17 gm PO DAILY PRN PRN Reason: Constipation Sodium Chloride (Sodium Chloride 0.9% 2.5 Ml Syringe) 2.5 ml FLUSH ASDIRECTED PRN PRN Reason: Keep Vein Open Thiamine HCl (Thiamine 100 Mg Tab) 100 mg PO BEDTIME [facility] Last Admin: 08/01/20 21:00 Dose: 100 mg Documented by: Discontinued Medications Sodium Chloride (Normal Saline) 1,000 mls @ 250 mls/hr IV STAT ONE Stop: 08/01/20 16:44 Last Admin: 08/01/20 13:27 Dose: 250 mls/hr Documented by: Ceftriaxone Sodium/Dextrose 1 (gm/ Premix) 50 mls @ 100 mls/hr IV ONETIME ONE Stop: 08/01/20 15:39 Last Admin: 08/01/20 16:00 Dose: 100 mls/hr Documented by: Sodium Chloride (Sodium Chloride 0.9% 10 Ml Syringe) 10 ml FLUSH ASDIRECTED PRN PRN Reason: Keep Vein Open Last Admin: 08/01/20 13:27 Dose: 10 ml Documented by: Sodium Chloride (Sodium Chloride 0.9% 2.5 Ml Syringe) 2.5 ml FLUSH ASDIRECTED PRN PRN Reason: Keep Vein Open Last Admin: 08/01/20 13:27 Dose: 2.5 ml Documented by: - Exam Quality Assessment: DVT Prophylaxis. No: Supplemental Oxygen, Urine Catheter General: Alert, Oriented, Cooperative, No Acute Distress Lungs: Normal Respiratory Effort, Decreased Breath Sounds Cardiovascular: Regular Rate, Regular Rhythm GI/Abdominal Exam: Normal Bowel Sounds, Soft, Non-Tender Back Exam: Decreased Range of Motion. No: Full Range of Motion, CVA Tenderness (L), CVA Tenderness (R) Extremities: Normal Inspection, Normal Range of Motion, Non-Tender, No Pedal Edema Skin: Warm, Dry Neurological: No New Focal Deficit Psy/Mental Status: Alert, Normal Affect, Normal Mood - Patient Data Lab Results Last 24 hrs: Laboratory Results - last 24 hr 08/01/20 08/01/20 08/01/20 Range/Units 13:27 13:27 13:27 WBC 11.76 H (4.0-11.0) K/uL RBC 4.04 L (4.30-5.90) M/uL Hgb 14.0 (12.0-16.0) g/dL Hct 42.1 (36.0-46.0) % MCV 104.2 H (80.0-98.0) fL MCH 34.7 H (27.0-32.0) pg MCHC 33.3 (31.0-37.0) g/dL RDW Std Deviation 50.2 (28.0-62.0) fl RDW Coeff of Otilia 13 (11.0-15.0) % Plt Count 176 (150-400) K/uL MPV 10.40 (7.40-12.00) fL Neut % (Auto) 80.8 H (48.0-80.0) % Lymph % (Auto) 11.3 L (16.0-40.0) % Lanier % (Auto) 7.7 (0.0-15.0) % Eos % (Auto) 0.0 (0.0-7.0) % Baso % (Auto) 0.2 (0.0-1.5) % Neut # (Auto) 9.5 H (1.4-5.7) K/uL Lymph # (Auto) 1.3 (0.6-2.4) K/uL Lanier # (Auto) 0.9 H (0.0-0.8) K/uL Eos # (Auto) 0.0 (0.0-0.7) K/uL Baso # (Auto) 0.0 (0.0-0.1) K/uL Nucleated RBC % 0.0 /100WBC Nucleated RBCs # 0 K/uL INR Sodium 138 (136-145) mmol/L Potassium 3.9 (3.5-5.1) mmol/L Chloride 102 (98-107) mmol/L Carbon Dioxide 20.7 L (21.0-32.0) mmol/L BUN 14 (7.0-18.0) mg/dL Creatinine 0.8 (0.6-1.0) mg/dL Est Cr Clr Drug Dosing 53.63 mL/min Estimated GFR (MDRD) > 60.0 ml/min Glucose 92 (74-106) mg/dL Lactic Acid 1.6 (0.4-2.0) mmol/L Calcium 8.4 L (8.5-10.1) mg/dL Magnesium (1.8-2.4) mg/dL Total Bilirubin 1.8 H (0.2-1.0) mg/dL AST 57 H (15-37) IU/L ALT 41 (14-63) IU/L Alkaline Phosphatase 86 (46-116) U/L Creatine Kinase 105 (26-308) U/L Troponin I (0.000-0.056) ng/mL Total Protein 7.6 (6.4-8.2) g/dL Albumin 2.8 L (3.4-5.0) g/dL Globulin 4.8 H (2.6-4.0) g/dL Albumin/Globulin Ratio 0.6 L (0.9-1.6) Urine Color Urine Appearance Urine pH (5.0-8.0) Ur Specific Culver (1.001-1.035) Urine Protein (NEGATIVE) mg/dL Urine Glucose (UA) (NEGATIVE) mg/dL Urine Ketones (NEGATIVE) mg/dL Urine Occult Blood (NEGATIVE) Urine Nitrite (NEGATIVE) Urine Bilirubin (NEGATIVE) Urine Ictotest Urine Urobilinogen (<2.0) EU/dL Ur Leukocyte Esterase (NEGATIVE) Urine RBC (0-2/HPF) Urine WBC (0-5/HPF) Ur Epithelial Cells (NONE-FEW) Calcium Oxalate Crystal (NEGATIVE) Urine Bacteria (NEGATIVE) SARS-CoV-2 RNA (JASKARAN) (NEGATIVE) 08/01/20 08/01/20 08/01/20 Range/Units 13:27 13:27 14:33 WBC (4.0-11.0) K/uL RBC (4.30-5.90) M/uL Hgb (12.0-16.0) g/dL Hct (36.0-46.0) % MCV (80.0-98.0) fL MCH (27.0-32.0) pg MCHC (31.0-37.0) g/dL RDW Std Deviation (28.0-62.0) fl RDW Coeff of Otilia (11.0-15.0) % Plt Count (150-400) K/uL MPV (7.40-12.00) fL Neut % (Auto) (48.0-80.0) % Lymph % (Auto) (16.0-40.0) % Lanier % (Auto) (0.0-15.0) % Eos % (Auto) (0.0-7.0) % Baso % (Auto) (0.0-1.5) % Neut # (Auto) (1.4-5.7) K/uL Lymph # (Auto) (0.6-2.4) K/uL Lanier # (Auto) (0.0-0.8) K/uL Eos # (Auto) (0.0-0.7) K/uL Baso # (Auto) (0.0-0.1) K/uL Nucleated RBC % /100WBC Nucleated RBCs # K/uL INR 1.14 Sodium (136-145) mmol/L Potassium (3.5-5.1) mmol/L Chloride (98-107) mmol/L Carbon Dioxide (21.0-32.0) mmol/L BUN (7.0-18.0) mg/dL Creatinine (0.6-1.0) mg/dL Est Cr Clr Drug Dosing mL/min Estimated GFR (MDRD) ml/min Glucose (74-106) mg/dL Lactic Acid (0.4-2.0) mmol/L Calcium (8.5-10.1) mg/dL Magnesium (1.8-2.4) mg/dL Total Bilirubin (0.2-1.0) mg/dL AST (15-37) IU/L ALT (14-63) IU/L Alkaline Phosphatase (46-116) U/L Creatine Kinase (26-308) U/L Troponin I < 0.050 (0.000-0.056) ng/mL Total Protein (6.4-8.2) g/dL Albumin (3.4-5.0) g/dL Globulin (2.6-4.0) g/dL Albumin/Globulin Ratio (0.9-1.6) Urine Color YELLOW Urine Appearance SLT CLOUDY Urine pH 8.0 (5.0-8.0) Ur Specific Culver 1.020 (1.001-1.035) Urine Protein TRACE H (NEGATIVE) mg/dL Urine Glucose (UA) NEGATIVE (NEGATIVE) mg/dL Urine Ketones TRACE H (NEGATIVE) mg/dL Urine Occult Blood NEGATIVE (NEGATIVE) Urine Nitrite NEGATIVE (NEGATIVE) Urine Bilirubin MODERATE H (NEGATIVE) Urine Ictotest NEGATIVE Urine Urobilinogen 2.0 H (<2.0) EU/dL Ur Leukocyte Esterase MODERATE H (NEGATIVE) Urine RBC 0-2 (0-2/HPF) Urine WBC 5-10 (0-5/HPF) Ur Epithelial Cells FEW (NONE-FEW) Calcium Oxalate Crystal FEW (NEGATIVE) Urine Bacteria 4+ H (NEGATIVE) SARS-CoV-2 RNA (JASKARAN) (NEGATIVE) 08/01/20 08/02/20 08/02/20 Range/Units 14:34 05:30 05:30 WBC 9.39 (4.0-11.0) K/uL RBC 3.49 L (4.30-5.90) M/uL Hgb 12.3 (12.0-16.0) g/dL Hct 36.5 (36.0-46.0) % MCV 104.6 H (80.0-98.0) fL MCH 35.2 H (27.0-32.0) pg MCHC 33.7 (31.0-37.0) g/dL RDW Std Deviation 50.7 (28.0-62.0) fl RDW Coeff of Otilia 14 (11.0-15.0) % Plt Count 153 (150-400) K/uL MPV 10.70 (7.40-12.00) fL Neut % (Auto) 57.8 (48.0-80.0) % Lymph % (Auto) 28.5 (16.0-40.0) % Lanier % (Auto) 12.5 (0.0-15.0) % Eos % (Auto) 0.9 (0.0-7.0) % Baso % (Auto) 0.3 (0.0-1.5) % Neut # (Auto) 5.4 (1.4-5.7) K/uL Lymph # (Auto) 2.7 H (0.6-2.4) K/uL Lanier # (Auto) 1.2 H (0.0-0.8) K/uL Eos # (Auto) 0.1 (0.0-0.7) K/uL Baso # (Auto) 0.0 (0.0-0.1) K/uL Nucleated RBC % 0.0 /100WBC Nucleated RBCs # 0 K/uL INR Sodium 139 (136-145) mmol/L Potassium 3.3 L (3.5-5.1) mmol/L Chloride 105 (98-107) mmol/L Carbon Dioxide 20.5 L (21.0-32.0) mmol/L BUN 14 (7.0-18.0) mg/dL Creatinine 0.7 (0.6-1.0) mg/dL Est Cr Clr Drug Dosing 58.21 mL/min Estimated GFR (MDRD) > 60.0 ml/min Glucose 89 (74-106) mg/dL Lactic Acid (0.4-2.0) mmol/L Calcium 7.6 L (8.5-10.1) mg/dL Magnesium 1.3 L (1.8-2.4) mg/dL Total Bilirubin (0.2-1.0) mg/dL AST (15-37) IU/L ALT (14-63) IU/L Alkaline Phosphatase (46-116) U/L Creatine Kinase (26-308) U/L Troponin I (0.000-0.056) ng/mL Total Protein (6.4-8.2) g/dL Albumin (3.4-5.0) g/dL Globulin (2.6-4.0) g/dL Albumin/Globulin Ratio (0.9-1.6) Urine Color Urine Appearance Urine pH (5.0-8.0) Ur Specific Culver (1.001-1.035) Urine Protein (NEGATIVE) mg/dL Urine Glucose (UA) (NEGATIVE) mg/dL Urine Ketones (NEGATIVE) mg/dL Urine Occult Blood (NEGATIVE) Urine Nitrite (NEGATIVE) Urine Bilirubin (NEGATIVE) Urine Ictotest Urine Urobilinogen (<2.0) EU/dL Ur Leukocyte Esterase (NEGATIVE) Urine RBC (0-2/HPF) Urine WBC (0-5/HPF) Ur Epithelial Cells (NONE-FEW) Calcium Oxalate Crystal (NEGATIVE) Urine Bacteria (NEGATIVE) SARS-CoV-2 RNA (JASKARAN) NEGATIVE (NEGATIVE) Result Diagrams: 08/02/20 05:30 08/02/20 05:30 Sepsis Event Note - Evaluation Sepsis Screening Result: No Definite Risk - Focused Exam Vital Signs: Vital Signs Temp Pulse Resp BP Pulse Ox 08/02/20 04:00 97.3 F 86 17 153/85 H 95 08/02/20 00:00 97.7 F 104 H 17 134/80 94 L - Problem List & Annotations (1) Fall SNOMED Code(s): 4462093, 794568628 Code(s): W19.XXXA - UNSPECIFIED FALL, INITIAL ENCOUNTER Status: Acute Current Visit: Yes Qualifiers: Encounter type: initial encounter Qualified Code(s): W19.XXXA - Unspecified fall, initial encounter (2) Urinary tract infection SNOMED Code(s): 46715857 Code(s): N39.0 - URINARY TRACT INFECTION, SITE NOT SPECIFIED Status: Acute Current Visit: Yes Qualifiers: Urinary tract infection type: acute cystitis Hematuria presence: without hematuria Qualified Code(s): N30.00 - Acute cystitis without hematuria (3) Anterolisthesis SNOMED Code(s): 586039723 Code(s): M43.10 - SPONDYLOLISTHESIS, SITE UNSPECIFIED Status: Acute Current Visit: Yes (4) Fracture of lumbar spine without cord injury SNOMED Code(s): 01819259, 647398693 Code(s): S32.009A - UNSP FRACTURE OF UNSP LUMBAR VERTEBRA, INIT FOR CLOS FX Status: Acute Current Visit: Yes (5) Self-care deficit SNOMED Code(s): 280753909 Code(s): Z78.9 - OTHER SPECIFIED HEALTH STATUS Status: Acute Current Visit: Yes (6) Thoracic compression fracture SNOMED Code(s): 502939174 Code(s): S22.000A - WEDGE COMPRESSION FRACTURE OF UNSP THORACIC VERTEBRA, INIT Status: Chronic Current Visit: Yes Qualifiers: Thoracic vertebra fracture level: T12 (7) Depression SNOMED Code(s): 61327366 Code(s): F32.9 - MAJOR DEPRESSIVE DISORDER, SINGLE EPISODE, UNSPECIFIED Status: Chronic Current Visit: Yes (8) CAP (community acquired pneumonia) SNOMED Code(s): 417642218 Code(s): J18.9 - PNEUMONIA, UNSPECIFIED ORGANISM Status: Acute Current Visit: Yes Qualifiers: Laterality: left Lung location: lower lobe of lung Qualified Code(s): J18.9 - Pneumonia, unspecified organism - Problem List Review Problem List Initiated/Reviewed/Updated: Yes - My Orders Last 24 Hours: My Active Orders 08/01/20 Lunch Regular Diet [DIET] 08/01/20 16:05 Oxygen Therapy [RC] PRN VTE/DVT Education [RC] PER UNIT ROUTINE Vital Signs [RC] Q4H Consult to Case Management/Protective Signal Repairer Helper [CONS] Routine PT Evaluation and Treatment [CONS] Routine Acetaminophen [TylenoL] 650 mg PO Q4H PRN Ibuprofen [Motrin] 200 mg PO Q6H PRN Ondansetron [Zofran] 4 mg IVPUSH Q4H PRN Sodium Chloride 0.9% [Saline Flush] 2.5 ml FLUSH ASDIRECTED PRN oxyCODONE 5 mg PO Q6H PRN polyethylene glycoL 3350 [MiraLAX] 17 gm PO DAILY PRN Saline Lock Insert [OM.PC] Routine Resuscitation Status Routine 08/01/20 16:15 Heparin Sodium 5,000 units SUBCUT Q12H Sodium Chloride 0.9% [Normal Saline] 1,000 ml IV Q8H 08/01/20 16:16 Telemetry Monitoring [Cardiac Monitoring] [RC] Q8H 08/01/20 16:17 Intake and Output [RC] Q12H bisacodyL [Dulcolax] 10 mg RECTAL DAILY PRN 08/01/20 16:20 CIWAA Assessment [RC] Q4H LORazepam [Ativan] See Protocol IVPUSH Q2H PRN 08/01/20 21:00 Docusate Sodium [Colace] 100 mg PO BID Folic Acid 1 mg PO BEDTIME Thiamine [Vitamin B-1] 100 mg PO BEDTIME 08/02/20 09:00 Calcium Carbonate/Vitamin D3 [Caltrate 600+D 1500 MG-400 Units] 1 tab PO DAILY 08/02/20 15:00 cefTRIAXone [Rocephin in Dextrose,Iso-Osm 1 GM/50 ML] 1 gm Premix Bag 1 bag IV Q24H 08/03/20 05:11 BASIC METABOLIC PANEL,BMP [CHEM] AM CBC WITH AUTO DIFF [HEME] AM MAGNESIUM [CHEM] AM 08/04/20 05:11 BASIC METABOLIC PANEL,BMP [CHEM] AM CBC WITH AUTO DIFF [HEME] AM MAGNESIUM [CHEM] AM - Plan Plan:: This 79-year-old female admitted with recent fall along with acute on chronic low back pain 1. Acute on chronic back pain -T12 compression fracture was noted previously, T10 appears to be remote as well. New L1 endplate compression fracture along with anterolisthesis of L 4 on L5 is noted. -Patient tenderness to spine is more noted lumbar spine. No neurological findings. -No saddle paresthesias noted -Pain control with Tylenol as needed along with low dose Motrin - Oxycodone for severe pain -PT to evaluate and treat -Consult case management for likely placement due to inability to care for herself at this time at home with increasing back pain. -Supplement calcium and vitamin D - Monitor on telemetry, unsure if syncopal event. She reports losing balance. 2. CAP -Left lower lung lobe opacity. -Continue Rocephin and azithromycin 3. UTI - UC pending - Continue Rocephin 4. Daily alcohol use -Denies withdrawal in the past -Thiamine and folic acid supplementation daily -Monitor CIWAA in case of withdrawals VTE prophylaxis: Heparin Consults: Case Management/social work for placement CODE STATUS: Full code Dispo: 2-3 days pending improvement
[2020-08-02] MEDS ORDERED: Potassium Chloride 20 MEQ Tab.ER PO ONE (08:15)
[2020-08-02] MEDS ORDERED: Magnesium Sulfate/Water 4 GM in Premix Bag 1 BAG IV ONE (08:15)
[2020-08-02] MEDS: Docusate Sodium 100 MG Cap PO SCH ×2 (08:30→20:29)
[2020-08-02] MEDS: Calcium Carbonate/Vitamin D3 1500 MG-400 Units Tab PO SCH (08:30)
[2020-08-02] MEDS: oxyCODONE 5 MG Tab PO PRN (09:07)
[2020-08-02] MEDS: cefTRIAXone 1 GM in Premix Bag 1 BAG IV SCH (15:02)
[2020-08-02] MEDS ORDERED: Pantoprazole 40 MG in Sodium Chloride 0.9% 10 ML IV ONE (15:03)
[2020-08-02] MEDS ORDERED: Calcium Carbonate 500 MG Tab.Chew PO PRN (15:03)
[2020-08-02] MEDS: Thiamine 100 MG Tab PO SCH (20:29)
[2020-08-02] MEDS: Azithromycin 250 MG Tab PO SCH (20:29)
[2020-08-02] MEDS: Folic Acid 1 MG Tab PO SCH (20:29)
[2020-08-03] MEDS: Sodium Chloride 0.9% 1,000 ML IV SCH ×2 (03:23→13:34)
[2020-08-03] MEDS: Heparin Sodium 5,000 Units/ML Vial SUBCUT SCH ×2 (05:57→15:55)
[2020-08-03 06:35] LABS: BLOOD UREA NITROGEN,BUN 9 mg/dL (7.0-18.0); CARBON DIOXIDE,CO2 21.7 mmol/L (21.0-32.0); CHLORIDE,CL 106 mmol/L (98-107); GLUCOSE RANDOM 91 mg/dL (74-106); POTASSIUM,K 3.4 mmol/L (3.5-5.1); SODIUM,NA 138 mmol/L (136-145)
--- NOTE | 2020-08-03 07:58 | PCM.PN ---
- General Info Date of Service: 08/03/20 Admission Dx/Problem (Free Text): Admission Diagnosis/Problem Admission Diagnosis/Problem Compression fracture of vertebra Subjective Update: Doing well today. No chest pain or SOB. No other concerns. Back pain improving today. Hasn't been out of bed yet. had BM today Functional Status: Reports: Pain Controlled - Review of Systems General: Reports: No Symptoms. Denies: Fatigue, Malaise HEENT: Reports: No Symptoms. Denies: Headaches, Sore Throat, Visual Changes Pulmonary: Reports: No Symptoms. Denies: Shortness of Breath Cardiovascular: Reports: No Symptoms. Denies: Chest Pain Gastrointestinal: Reports: No Symptoms. Denies: Abdominal Pain, Nausea, Vo miting Genitourinary: Reports: No Symptoms. Denies: Dysuria, Frequency, Burning Musculoskeletal: Reports: Back Pain Skin: Reports: No Symptoms Neurological: Reports: No Symptoms Psychiatric: Reports: No Symptoms - Patient Data Vitals - Most Recent: Last Vital Signs Temp 97.9 F 08/03/20 07:44 Pulse 76 08/03/20 07:44 Resp 16 08/03/20 07:44 BP 144/77 H 08/03/20 07:44 Pulse Ox 94 L 08/03/20 07:44 Weight - Most Recent: 58.5 kg I&O - Last 24 Hours: Intake & Output 08/02/20 08/03/20 08/03/20 22:59 06:59 14:59 Intake Total 2902 860 Output Total 200 Balance 2902 660 Lab Results Last 24 Hours: Laboratory Results - last 24 hr 08/03/20 08/03/20 Range/Units 05:20 05:20 WBC 8.17 (4.0-11.0) K/uL RBC 3.32 L (4.30-5.90) M/uL Hgb 11.5 L (12.0-16.0) g/dL Hct 34.3 L (36.0-46.0) % MCV 103.3 H (80.0-98.0) fL MCH 34.6 H (27.0-32.0) pg MCHC 33.5 (31.0-37.0) g/dL RDW Std Deviation 48.9 (28.0-62.0) fl RDW Coeff of [place]tilia 13 (11.0-15.0) % Plt Count 156 (150-400) K/uL MPV 11.20 (7.40-12.00) fL Neut % (Auto) 52.7 (48.0-80.0) % Lymph % (Auto) 32.7 (16.0-40.0) % [place] % (Auto) 13.3 (0.0-15.0) % Eos % (Auto) 1.1 (0.0-7.0) % Baso % (Auto) 0.2 (0.0-1.5) % Neut # (Auto) 4.3 (1.4-5.7) K/uL Lymph # (Auto) 2.7 H (0.6-2.4) K/uL [place] # (Auto) 1.1 H (0.0-0.8) K/uL Eos # (Auto) 0.1 (0.0-0.7) K/uL Baso # (Auto) 0.0 (0.0-0.1) K/uL Nucleated RBC % 0.0 /100WBC Nucleated RBCs # 0 K/uL Sodium 138 (136-145) mmol/L Potassium 3.4 L (3.5-5.1) mmol/L Chloride 106 (98-107) mmol/L Carbon Dioxide 21.7 (21.0-32.0) mmol/L BUN 9 (7.0-18.0) mg/dL Creatinine 0.6 (0.6-1.0) mg/dL Est Cr Clr Drug Dosing 67.91 mL/min Estimated GFR (MDRD) > 60.0 ml/min Glucose 91 (74-106) mg/dL Calcium 7.1 L (8.5-10.1) mg/dL Magnesium 1.9 (1.8-2.4) mg/dL Med Orders - Current: Current Medications Acetaminophen (Acetaminophen 325 Mg Tab) 650 mg PO Q4H PRN PRN Reason: Pain (mild 1-3) Azithromycin (Azithromycin 250 Mg Tab) 500 mg PO Q24H [facility] Last Admin: 08/02/20 20:29 Dose: 500 mg Documented by: Bisacodyl (Bisacodyl 10 Mg Supp) 10 mg RECTAL DAILY PRN PRN Reason: if no BM in 3 days Calcium Carbonate (Calcium Carbonate/Vitamin D3 1500 Mg-400 Units Tab) 1 tab PO DAILY [facility] Last Admin: 08/02/20 08:30 Dose: 1 tab Documented by: Calcium Carbonate/Glycine (Calcium Carbonate 500 Mg Tab.Chew) 1,000 mg PO Q2HR PRN PRN Reason: Indigestion Docusate Sodium (Docusate Sodium 100 Mg Cap) 100 mg PO BID [facility] Last Admin: 08/02/20 20:29 Dose: 100 mg Documented by: Folic Acid (Folic Acid 1 Mg Tab) 1 mg PO BEDTIME [facility] Last Admin: 08/02/20 20:29 Dose: 1 mg Documented by: Heparin Sodium (Porcine) (Heparin Sodium 5,000 Units/Ml Vial) 5,000 units SUBCUT Q12H [facility] Last Admin: 08/03/20 05:57 Dose: 5,000 units Documented by: Sodium Chloride (Normal Saline) 1,000 mls @ 125 mls/hr IV Q8H [facility] Last Admin: 08/03/20 03:23 Dose: 125 mls/hr Documented by: Ceftriaxone Sodium/Dextrose 1 (gm/ Premix) 50 mls @ 100 mls/hr IV Q24H [facility] Last Admin: 08/02/20 15:02 Dose: 100 mls/hr Documented by: Lorazepam (Lorazepam 2 Mg/Ml Sdv) 0 mg IVPUSH Q2H PRN; Protocol PRN Reason: CIWAA assessment Ondansetron HCl (Ondansetron 4 Mg/2 Ml Sdv) 4 mg IVPUSH Q4H PRN PRN Reason: Nausea Oxycodone HCl (Oxycodone 5 Mg Tab) 5 mg PO Q6H PRN PRN Reason: Pain (moderate 4-6) Last Admin: 08/02/20 09:07 Dose: 5 mg Documented by: Polyethylene Glycol (Polyethylene Glycol 3350 Powder 17 Gm Packet) 17 gm PO DAILY PRN PRN Reason: Constipation Last Admin: 08/02/20 15:06 Dose: 17 gm Documented by: Potassium Chloride (Potassium Chloride 20 Meq Tab.Er) 40 meq PO ONETIME ONE Stop: 08/03/20 07:57 Sodium Chloride (Sodium Chloride 0.9% 2.5 Ml Syringe) 2.5 ml FLUSH ASDIRECTED PRN PRN Reason: Keep Vein Open Thiamine HCl (Thiamine 100 Mg Tab) 100 mg PO BEDTIME [facility] Last Admin: 08/02/20 20:29 Dose: 100 mg Documented by: Discontinued Medications Sodium Chloride (Normal Saline) 1,000 mls @ 250 mls/hr IV STAT ONE Stop: 08/01/20 16:44 Last Admin: 08/01/20 13:27 Dose: 250 mls/hr Documented by: Ceftriaxone Sodium/Dextrose 1 (gm/ Premix) 50 mls @ 100 mls/hr IV ONETIME ONE Stop: 08/01/20 15:39 Last Admin: 08/01/20 16:00 Dose: 100 mls/hr Documented by: Magnesium Sulfate 4 gm/ Premix 100 mls @ 50 mls/hr IV ONETIME ONE Stop: 08/02/20 10:14 Last Admin: 08/02/20 08:25 Dose: 50 mls/hr Documented by: Pantoprazole Sodium 40 mg/ (Sodium Chloride) 10 mls @ 300 mls/hr IV NOW ONE Stop: 08/02/20 15:04 Last Admin: 08/02/20 16:25 Dose: 300 mls/hr Documented by: Ibuprofen (Ibuprofen 200 Mg Tab) 200 mg PO Q6H PRN PRN Reason: Pain (mild 1-3) Potassium Chloride (Potassium Chloride 20 Meq Tab.Er) 40 meq PO ONETIME ONE Stop: 08/02/20 08:16 Last Admin: 08/02/20 08:30 Dose: 40 meq Documented by: Sodium Chloride (Sodium Chloride 0.9% 10 Ml Syringe) 10 ml FLUSH ASDIRECTED PRN PRN Reason: Keep Vein Open Last Admin: 08/01/20 13:27 Dose: 10 ml Documented by: Sodium Chloride (Sodium Chloride 0.9% 2.5 Ml Syringe) 2.5 ml FLUSH ASDIRECTED PRN PRN Reason: Keep Vein Open Last Admin: 08/01/20 13:27 Dose: 2.5 ml Documented by: - Exam General: Alert, Oriented, Cooperative, No Acute Distress Lungs: Clear to Auscultation, Normal Respiratory Effort Cardiovascular: Regular Rate, Regular Rhythm GI/Abdominal Exam: Normal Bowel Sounds, Soft, Non-Tender Back Exam: Decreased Range of Motion. No: Full Range of Motion Extremities: Normal Inspection, Normal Range of Motion, Non-Tender, No Pedal Edema Wound/Incisions: Healing Well Neurological: No New Focal Deficit Psy/Mental Status: Alert, Normal Affect, Normal Mood - Patient Data Lab Results Last 24 hrs: Laboratory Results - last 24 hr 06/23/21 06/23/21 Range/Units 05:20 05:20 WBC 8.17 (4.0-11.0) K/uL RBC 3.32 L (4.30-5.90) M/uL Hgb 11.5 L (12.0-16.0) g/dL Hct 34.3 L (36.0-46.0) % MCV 103.3 H (80.0-98.0) fL MCH 34.6 H (27.0-32.0) pg MCHC 33.5 (31.0-37.0) g/dL RDW Std Deviation 48.9 (28.0-62.0) fl RDW Coeff of Otilia 13 (11.0-15.0) % Plt Count 156 (150-400) K/uL MPV 11.20 (7.40-12.00) fL Neut % (Auto) 52.7 (48.0-80.0) % Lymph % (Auto) 32.7 (16.0-40.0) % [place] % (Auto) 13.3 (0.0-15.0) % Eos % (Auto) 1.1 (0.0-7.0) % Baso % (Auto) 0.2 (0.0-1.5) % Neut # (Auto) 4.3 (1.4-5.7) K/uL Lymph # (Auto) 2.7 H (0.6-2.4) K/uL [place] # (Auto) 1.1 H (0.0-0.8) K/uL Eos # (Auto) 0.1 (0.0-0.7) K/uL Baso # (Auto) 0.0 (0.0-0.1) K/uL Nucleated RBC % 0.0 /100WBC Nucleated RBCs # 0 K/uL Sodium 138 (136-145) mmol/L Potassium 3.4 L (3.5-5.1) mmol/L Chloride 106 (98-107) mmol/L Carbon Dioxide 21.7 (21.0-32.0) mmol/L BUN 9 (7.0-18.0) mg/dL Creatinine 0.6 (0.6-1.0) mg/dL Est Cr Clr Drug Dosing 67.91 mL/min Estimated GFR (MDRD) > 60.0 ml/min Glucose 91 (74-106) mg/dL Calcium 7.1 L (8.5-10.1) mg/dL Magnesium 1.9 (1.8-2.4) mg/dL Result Diagrams: 08/03/20 05:20 08/03/20 05:20 Sepsis Event Note - Evaluation Sepsis Screening Result: No Definite Risk - Focused Exam Vital Signs: Vital Signs Temp Pulse Resp BP Pulse Ox 08/03/20 07:44 97.9 F 76 16 144/77 H 94 L 08/03/20 04:00 96.4 F L 78 19 149/83 H 95 08/03/20 00:00 98.7 F 83 17 141/75 H 96 08/02/20 20:00 99.5 F 95 18 128/87 95 - Problem List & Annotations (1) Fall SNOMED Code(s): 4207308, 044267937 Code(s): W19.XXXA - UNSPECIFIED FALL, INITIAL ENCOUNTER Status: Acute Current Visit: Yes Qualifiers: Encounter type: initial encounter Qualified Code(s): W19.XXXA - Unspecified fall, initial encounter (2) Urinary tract infection SNOMED Code(s): 84034092 Code(s): N39.0 - URINARY TRACT INFECTION, SITE NOT SPECIFIED Status: Acute Current Visit: Yes Qualifiers: Urinary tract infection type: acute cystitis Hematuria presence: without hematuria Qualified Code(s): N30.00 - Acute cystitis without hematuria (3) Anterolisthesis SNOMED Code(s): 783620867 Code(s): M43.10 - SPONDYLOLISTHESIS, SITE UNSPECIFIED Status: Acute Current Visit: Yes (4) Fracture of lumbar spine without cord injury SNOMED Code(s): 63856900, 506392200 Code(s): S32.009A - UNSP FRACTURE OF UNSP LUMBAR VERTEBRA, INIT FOR CLOS FX Status: Acute Current Visit: Yes (5) Self-care deficit SNOMED Code(s): 102999104 Code(s): Z78.9 - OTHER SPECIFIED HEALTH STATUS Status: Acute Current Visit: Yes (6) Thoracic compression fracture SNOMED Code(s): 212942312 Code(s): S22.000A - WEDGE COMPRESSION FRACTURE OF UNSP THORACIC VERTEBRA, INIT Status: Chronic Current Visit: Yes Qualifiers: Thoracic vertebra fracture level: T12 (7) Depression SNOMED Code(s): 39172740 Code(s): F32.9 - MAJOR DEPRESSIVE DISORDER, SINGLE EPISODE, UNSPECIFIED Status: Chronic Current Visit: Yes (8) CAP (community acquired pneumonia) SNOMED Code(s): 539243226 Code(s): J18.9 - PNEUMONIA, UNSPECIFIED ORGANISM Status: Acute Current Visit: Yes Qualifiers: Laterality: left Lung location: lower lobe of lung Qualified Code(s): J 18.9 - Pneumonia, unspecified organism - Problem List Review Problem List Initiated/Reviewed/Updated: Yes - My Orders Last 24 Hours: My Active Orders 08/02/20 09:00 Calcium Carbonate/Vitamin D3 [Caltrate 600+D 1500 MG-400 Units] 1 tab PO DAILY 08/02/20 15:00 cefTRIAXone [Rocephin in Dextrose,Iso-Osm 1 GM/50 ML] 1 gm Premix Bag 1 bag IV Q24H 08/02/20 15:03 Calcium Carbonate [Tums] 1,000 mg PO Q2HR PRN 08/03/20 07:56 Potassium Chloride [Klor-Con M20] 40 meq PO ONETIME ONE 08/04/20 05:11 BASIC METABOLIC PANEL,BMP [CHEM] AM CBC WITH AUTO DIFF [HEME] AM MAGNESIUM [CHEM] AM - Plan Plan:: This 79-year-old female admitted with recent fall along with acute on chronic low back pain 1. Acute on chronic back pain - Slow improvement -T12 compression fracture was noted previously, T10 appears to be remote as well. New L1 endplate compression fracture along with anterolisthesis of L 4 on L5 is noted. -Pain control with Tylenol as needed along with low dose Motrin - Oxycodone for severe pain -PT to evaluate and treat -Consult case management for likely placement due to inability to care for herself at this time at home with increasing back pain. -Supplement calcium and vitamin D 2. CAP -Left lower lung lobe opacity. -Continue Rocephin and azithromycin 3. UTI - UC pending - Continue Rocephin 4. Daily alcohol use -Denies withdrawal in the past -Thiamine and folic acid supplementation daily -Monitor CIWAA in case of withdrawals VTE prophylaxis: Heparin Consults: Case Management/social work for placement CODE STATUS: Full code Dispo: 2-3 days pending improvement
[2020-08-03] MEDS ORDERED: Potassium Chloride 20 MEQ Tab.ER PO ONE (08:00)
[2020-08-03] MEDS: Calcium Carbonate/Vitamin D3 1500 MG-400 Units Tab PO SCH (09:48)
[2020-08-03] MEDS: Docusate Sodium 100 MG Cap PO SCH ×2 (09:48→20:08)
[2020-08-03] MEDS: oxyCODONE 5 MG Tab PO PRN ×2 (09:48→19:53)
[2020-08-03] MEDS: cefTRIAXone 1 GM in Premix Bag 1 BAG IV SCH (15:04)
[2020-08-03] MEDS: Thiamine 100 MG Tab PO SCH (20:08)
[2020-08-03] MEDS: Azithromycin 250 MG Tab PO SCH (20:08)
[2020-08-03] MEDS: Folic Acid 1 MG Tab PO SCH (20:08)
[2020-08-04] MEDS: Heparin Sodium 5,000 Units/ML Vial SUBCUT SCH ×2 (04:37→16:00)
[2020-08-04] MEDS: oxyCODONE 5 MG Tab PO PRN (09:23)
[2020-08-04] MEDS: Calcium Carbonate/Vitamin D3 1500 MG-400 Units Tab PO SCH (09:26)
[2020-08-04] MEDS: Docusate Sodium 100 MG Cap PO SCH ×2 (09:27→20:59)
[2020-08-04 09:43] LABS: BLOOD UREA NITROGEN,BUN 7 mg/dL (7.0-18.0); CARBON DIOXIDE,CO2 23.5 mmol/L (21.0-32.0); CHLORIDE,CL 106 mmol/L (98-107); GLUCOSE RANDOM 97 mg/dL (74-106); POTASSIUM,K 3.4 mmol/L (3.5-5.1); SODIUM,NA 139 mmol/L (136-145)
--- NOTE | 2020-08-04 11:35 | PCM.PN ---
- General Info Date of Service: 08/04/20 Admission Dx/Problem (Free Text): Admission Diagnosis/Problem Admission Diagnosis/Problem Compression fracture of vertebra Subjective Update: Feeling improved today. Patient had gone to her bed by herself from the chair. Reports pain is much improved. Has been ambulating in the room and in the hallway with physical therapy. Complains of mild pain but otherwise much improved since she arrived. Denies any chest pain shortness of breath. She is concerned about going home she reports she needs help there. Case management as well as providers have been in contact with her sons regarding arranging help. Patient will be discharged home when she is able with home health. She is reassured she will have care at home along with pain medication to help her back. Functional Status: Reports: Pain Controlled, Tolerating Diet, Ambulating, Urinating - Review of Systems General: Reports: No Symptoms. Denies: Fatigue, Malaise HEENT: Reports: No Symptoms. Denies: Headaches, Sore Throat, Visual Changes Pulmonary: Reports: No Symptoms. Denies: Shortness of Breath Cardiovascular: Reports: No Symptoms. Denies: Chest Pain Gastrointestinal: Reports: No Symptoms. Denies: Abdominal Pain, Nausea, Vomiting Genitourinary: Reports: No Symptoms. Denies: Dysuria, Frequency Musculoskeletal: Reports: Back Pain (Hurts when movement of waist occurs but otherwise much improved) Skin: Reports: No Symptoms Neurological: Reports: No Symptoms Psychiatric: Reports: No Symptoms - Patient Data Vitals - Most Recent: Last Vital Signs Temp 97.4 F 08/04/20 06:55 Pulse 73 08/04/20 06:55 Resp 17 08/04/20 06:55 BP 149/78 H 08/04/20 06:55 Pulse Ox 95 08/04/20 06:55 Weight - Most Recent: 58.5 kg I&O - Last 24 Hours: Intake & Output 08/03/20 08/04/20 08/04/20 22:59 06:59 14:59 Intake Total 1340 400 300 Output Total 600 Balance 1340 -200 300 Lab Results Last 24 Hours: Laboratory Results - last 24 hr 08/04/20 08/04/20 Range/Units 09:04 09:04 WBC 6.47 (4.0-11.0) K/uL RBC 3.45 L (4.30-5.90) M/uL Hgb 12.0 (12.0-16.0) g/dL Hct 35.7 L (36.0-46.0) % MCV 103.5 H (80.0-98.0) fL MCH 34.8 H (27.0-32.0) pg MCHC 33.6 (31.0-37.0) g/dL RDW Std Deviation 49.3 (28.0-62.0) fl RDW Coeff of Otilia 13 (11.0-15.0) % Plt Count 171 (150-400) K/uL MPV 10.30 (7.40-12.00) fL Neut % (Auto) 48.9 (48.0-80.0) % Lymph % (Auto) 31.5 (16.0-40.0) % [place] % (Auto) 18.2 H (0.0-15.0) % Eos % (Auto) 1.1 (0.0-7.0) % Baso % (Auto) 0.3 (0.0-1.5) % Neut # (Auto) 3.2 (1.4-5.7) K/uL Lymph # (Auto) 2.0 (0.6-2.4) K/uL [place] # (Auto) 1.2 H (0.0-0.8) K/uL Eos # (Auto) 0.1 (0.0-0.7) K/uL Baso # (Auto) 0.0 (0.0-0.1) K/uL Nucleated RBC % 0.0 /100WBC Nucleated RBCs # 0 K/uL Sodium 139 (136-145) mmol/L Potassium 3.4 L (3.5-5.1) mmol/L Chloride 106 (98-107) mmol/L Carbon Dioxide 23.5 (21.0-32.0) mmol/L BUN 7 (7.0-18.0) mg/dL Creatinine 0.8 (0.6-1.0) mg/dL Est Cr Clr Drug Dosing 50.93 mL/min Estimated GFR (MDRD) > 60.0 ml/min Glucose 97 (74-106) mg/dL Calcium 7.6 L (8.5-10.1) mg/dL Magnesium 1.7 L (1.8-2.4) mg/dL [place] Results Last 24 Hours: Microbiology 08/01/20 14:33 Urine Culture - Preliminary Urine Escherichia Coli Med Orders - Current: Current Medications Acetaminophen (Acetaminophen 325 Mg Tab) 650 mg PO Q4H PRN PRN Reason: Pain (mild 1-3) Azithromycin (Azithromycin 250 Mg Tab) 500 mg PO Q24H [facility] Last Admin: 08/03/20 20:08 Dose: 500 mg Documented by: Bisacodyl (Bisacodyl 10 Mg Supp) 10 mg RECTAL DAILY PRN PRN Reason: if no BM in 3 days Calcium Carbonate (Calcium Carbonate/Vitamin D3 1500 Mg-400 Units Tab) 1 tab PO DAILY [facility] Last Admin: 08/04/20 09:26 Dose: 1 tab Documented by: Calcium Carbonate/Glycine (Calcium Carbonate 500 Mg Tab.Chew) 1,000 mg PO Q2HR PRN PRN Reason: Indigestion Docusate Sodium (Docusate Sodium 100 Mg Cap) 100 mg PO BID [facility] Last Admin: 08/04/20 09:27 Dose: 100 mg Documented by: Folic Acid (Folic Acid 1 Mg Tab) 1 mg PO BEDTIME [facility] Last Admin: 08/03/20 20:08 Dose: 1 mg Documented by: Heparin Sodium (Porcine) (Heparin Sodium 5,000 Units/Ml Vial) 5,000 units SUBCUT Q12H [facility] Last Admin: 08/04/20 04:37 Dose: Not Given Documented by: Ceftriaxone Sodium/Dextrose 1 (gm/ Premix) 50 mls @ 100 mls/hr IV Q24H [facility] Last Admin: 08/03/20 15:04 Dose: 100 mls/hr Documented by: Lorazepam (Lorazepam 2 Mg/Ml Sdv) 0 mg IVPUSH Q2H PRN; Protocol PRN Reason: CIWAA assessment Ondansetron HCl (Ondansetron 4 Mg/2 Ml Sdv) 4 mg IVPUSH Q4H PRN PRN Reason: Nausea Oxycodone HCl (Oxycodone 5 Mg Tab) 5 mg PO Q6H PRN PRN Reason: Pain (moderate 4-6) Last Admin: 08/04/20 09:23 Dose: 5 mg Documented by: Polyethylene Glycol (Polyethylene Glycol 3350 Powder 17 Gm Packet) 17 gm PO DAILY PRN PRN Reason: Constipation Last Admin: 08/02/20 15:06 Dose: 17 gm Documented by: Sodium Chloride (Sodium Chloride 0.9% 2.5 Ml Syringe) 2.5 ml FLUSH ASDIRECTED PRN PRN Reason: Keep Vein Open Thiamine HCl (Thiamine 100 Mg Tab) 100 mg PO BEDTIME [facility] Last Admin: 08/03/20 20:08 Dose: 100 mg Documented by: Discontinued Medications Sodium Chloride (Normal Saline) 1,000 mls @ 250 mls/hr IV STAT ONE Stop: 08/01/20 16:44 Last Admin: 08/01/20 13:27 Dose: 250 mls/hr Documented by: Ceftriaxone Sodium/Dextrose 1 (gm/ Premix) 50 mls @ 100 mls/hr IV ONETIME ONE Stop: 08/01/20 15:39 Last Admin: 08/01/20 16:00 Dose: 100 mls/hr Documented by: Sodium Chloride (Normal Saline) 1,000 mls @ 125 mls/hr IV Q8H [facility] Last Admin: 08/03/20 13:34 Dose: Not Given Documented by: Magnesium Sulfate 4 gm/ Premix 100 mls @ 50 mls/hr IV ONETIME ONE Stop: 08/02/20 10:14 Last Admin: 08/02/20 08:25 Dose: 50 mls/hr Documented by: Pantoprazole Sodium 40 mg/ (Sodium Chloride) 10 mls @ 300 mls/hr IV NOW ONE Stop: 08/02/20 15:04 Last Admin: 08/02/20 16:25 Dose: 300 mls/hr Documented by: Ibuprofen (Ibuprofen 200 Mg Tab) 200 mg PO Q6H PRN PRN Reason: Pain (mild 1-3) Potassium Chloride (Potassium Chloride 20 Meq Tab.Er) 40 meq PO ONETIME ONE Stop: 08/02/20 08:16 Last Admin: 08/02/20 08:30 Dose: 40 meq Documented by: Potassium Chloride (Potassium Chloride 20 Meq Tab.Er) 40 meq PO ONETIME ONE Stop: 08/03/20 08:01 Last Admin: 08/03/20 09:50 Dose: 40 meq Documented by: Sodium Chloride (Sodium Chloride 0.9% 10 Ml Syringe) 10 ml FLUSH ASDIRECTED PRN PRN Reason: Keep Vein Open Last Admin: 08/01/20 13:27 Dose: 10 ml Documented by: Sodium Chloride (Sodium Chloride 0.9% 2.5 Ml Syringe) 2.5 ml FLUSH ASDIRECTED PRN PRN Reason: Keep Vein Open Last Admin: 08/01/20 13:27 Dose: 2.5 ml Documented by: - Exam General: Alert, Oriented, Cooperative, No Acute Distress Lungs: Clear to Auscultation, Normal Respiratory Effort Cardiovascular: Regular Rate, Regular Rhythm GI/Abdominal Exam: Normal Bowel Sounds, Soft, Non-Tender Extremities: Normal Inspection, Normal Range of Motion, Non-Tender, No Pedal Edema Neurological: No New Focal Deficit Psy/Mental Status: Alert, Normal Affect, Normal Mood - Patient Data Lab Results Last 24 hrs: Laboratory Results - last 24 hr 08/04/20 08/04/20 Range/Units 09:04 09:04 WBC 6.47 (4.0-11.0) K/uL RBC 3.45 L (4.30-5.90) M/uL Hgb 12.0 (12.0-16.0) g/dL Hct 35.7 L (36.0-46.0) % MCV 103.5 H (80.0-98.0) fL MCH 34.8 H (27.0-32.0) pg MCHC 33.6 (31.0-37.0) g/dL RDW Std Deviation 49.3 (28.0-62.0) fl RDW Coeff of [place] 13 (11.0-15.0) % Plt Count 171 (150-400) K/uL MPV 10.30 (7.40-12.00) fL Neut % (Auto) 48.9 (48.0-80.0) % Lymph % (Auto) 31.5 (16.0-40.0) % [place] % (Auto) 18.2 H (0.0-15.0) % Eos % (Auto) 1.1 (0.0-7.0) % Baso % (Auto) 0.3 (0.0-1.5) % Neut # (Auto) 3.2 (1.4-5.7) K/uL Lymph # (Auto) 2.0 (0.6-2.4) K/uL [place] # (Auto) 1.2 H (0.0-0.8) K/uL Eos # (Auto) 0.1 (0.0-0.7) K/uL Baso # (Auto) 0.0 (0.0-0.1) K/uL Nucleated RBC % 0.0 /100WBC Nucleated RBCs # 0 K/uL Sodium 139 (136-145) mmol/L Potassium 3.4 L (3.5-5.1) mmol/L Chloride 106 (98-107) mmol/L Carbon Dioxide 23.5 (21.0-32.0) mmol/L BUN 7 (7.0-18.0) mg/dL Creatinine 0.8 (0.6-1.0) mg/dL Est Cr Clr Drug Dosing 50.93 mL/min Estimated GFR (MDRD) > 60.0 ml/min Glucose 97 (74-106) mg/dL Calcium 7.6 L (8.5-10.1) mg/dL Magnesium 1.7 L (1.8-2.4) mg/dL Result Diagrams: 08/04/20 09:04 08/04/20 09:04 [place] Results Last 24 hrs: Microbiology 08/01/20 14:33 Urine Culture - Preliminary Urine Escherichia Coli Sepsis Event Note - Evaluation Sepsis Screening Result: No Definite Risk - Focused Exam Vital Signs: Vital Signs Temp Pulse Resp BP Pulse Ox 08/04/20 06:55 97.4 F 73 17 149/78 H 95 08/04/20 04:21 97.8 F 82 16 152/74 H 96 08/04/20 00:55 98.6 F 89 16 135/85 97 - Problem List & Annotations (1) Fall SNOMED Code(s): 7253962, 995190273 Code(s): W19.XXXA - UNSPECIFIED FALL, INITIAL ENCOUNTER Status: Acute Current Visit: Yes Qualifiers: Encounter type: initial encounter Qualified Code(s): W19.XXXA - Unspecified fall, initial encounter (2) Urinary tract infection SNOMED Code(s): 07582038 Code(s): N39.0 - URINARY TRACT INFECTION, SITE NOT SPECIFIED Status: Acute Current Visit: Yes Qualifiers: Urinary tract infection type: acute cystitis Hematuria presence: without hematuria Qualified Code(s): N30.00 - Acute cystitis without hematuria (3) Anterolisthesis SNOMED Code(s): 664274411 Code(s): M43.10 - SPONDYLOLISTHESIS, SITE UNSPECIFIED Status: Acute Current Visit: Yes (4) Fracture of lumbar spine without cord injury SNOMED Code(s): 55541731, 892949495 Code(s): S32.009A - UNSP FRACTURE OF UNSP LUMBAR VERTEBRA, INIT FOR CLOS FX Status: Acute Current Visit: Yes (5) Self-care deficit SNOMED Code(s): 010633209 Code(s): Z78.9 - OTHER SPECIFIED HEALTH STATUS Status: Acute Current Visit: Yes (6) Thoracic compression fracture SNOMED Code(s): 774646196 Code(s): S22.000A - WEDGE COMPRESSION FRACTURE OF UNSP THORACIC VERTEBRA, INIT Status: Chronic Current Visit: Yes Qualifiers: Thoracic vertebra fracture level: T12 (7) Depression SNOMED Code(s): 96748972 Code(s): F32.9 - MAJOR DEPRESSIVE DISORDER, SINGLE EPISODE, UNSPECIFIED Status: Chronic Current Visit: Yes (8) CAP (community acquired pneumonia) SNOMED Code(s): 673537935 Code(s): J18.9 - PNEUMONIA, UNSPECIFIED ORGANISM Status: Acute Current Visit: Yes Qualifiers: Laterality: left Lung location: lower lobe of lung Qualified Code(s): J18.9 - Pneumonia, unspecified organism - Problem List Review Problem List Initiated/Reviewed/Updated: Yes - Plan Plan:: This 79-year-old female admitted with recent fall along with acute on chronic low back pain 1. Acute on chronic back pain - showing continued improvement able to walk today with minimal assistance. -T12 compression fracture was noted previously, T10 appears to be remote as well. New L1 endplate compression fracture along with anterolisthesis of L 4 on L5 is noted. -Pain control with Tylenol as needed along with low dose Motrin - Oxycodone for severe pain -PT to evaluate and treat -Consult case management for likely placement due to inability to care for herself at this time at home with increasing back pain. -Supplement calcium and vitamin D 2. CAP -Left lower lung lobe opacity. -Continue Rocephin and azithromycin 3. UTI -E. coli UTI, DARWIN pending - Continue Rocephin 4. Daily alcohol use -Denies withdrawal in the past -Thiamine and folic acid supplementation daily -Monitor CIWAA in case of withdrawals VTE prophylaxis: Heparin Consults: Case Management/social work for placement CODE STATUS: Full code Dispo: Likely home in the next day or so with home health. Will speak with son later today
[2020-08-04] MEDS ORDERED: Potassium Chloride 20 MEQ Tab.ER PO ONE (11:42)
[2020-08-04] MEDS ORDERED: Magnesium Sulfate/Water 2 GM in Premix Bag 1 BAG IV ONE (11:42)
[2020-08-04] MEDS: cefTRIAXone 1 GM in Premix Bag 1 BAG IV SCH (16:01)
[2020-08-04] MEDS: Folic Acid 1 MG Tab PO SCH (20:59)
[2020-08-04] MEDS: Thiamine 100 MG Tab PO SCH (20:59)
[2020-08-04] MEDS: Azithromycin 250 MG Tab PO SCH (20:59)
[2020-08-05] MEDS: Heparin Sodium 5,000 Units/ML Vial SUBCUT SCH ×2 (04:28→15:31)
[2020-08-05 09:33] LABS: BLOOD UREA NITROGEN,BUN 8 mg/dL (7.0-18.0); CARBON DIOXIDE,CO2 23.6 mmol/L (21.0-32.0); CHLORIDE,CL 106 mmol/L (98-107); GLUCOSE RANDOM 88 mg/dL (74-106); POTASSIUM,K 3.9 mmol/L (3.5-5.1); SODIUM,NA 137 mmol/L (136-145)
[2020-08-05] MEDS: Calcium Carbonate/Vitamin D3 1500 MG-400 Units Tab PO SCH (09:43)
[2020-08-05] MEDS: Docusate Sodium 100 MG Cap PO SCH ×2 (09:43→21:24)
--- NOTE | 2020-08-05 10:20 | PCM.PN ---
- General Info Date of Service: 08/05/20 Admission Dx/Problem (Free Text): Admission Diagnosis/Problem Admission Diagnosis/Problem Compression fracture of vertebra Subjective Update: Sitting up in chair with legs crossed, appears comfortable. Reports back pain. Has been up ambulating. Urinating and having BMs. eating and drinking well. Concerned abot care at home. Will have case management speak with son today, he was arranging help with home care givers and encouraged to set up COVID vaccination LILIANA to help with placement. Functional Status: Reports: Pain Controlled, Tolerating Diet, Ambulating, Urinating - Review of Systems General: Reports: No Symptoms. Denies: Weakness, Fatigue HEENT: Reports: No Symptoms. Denies: Headaches, Sore Throat, Visual Changes Pulmonary: Reports: No Symptoms. Denies: Shortness of Breath Cardiovascular: Reports: No Symptoms. Denies: Chest Pain Gastrointestinal: Reports: No Symptoms. Denies: Abdominal Pain, Nausea, Vomiting Genitourinary: Reports: No Symptoms. Denies: Dysuria, Frequency, Burning Musculoskeletal: Reports: Back Pain Skin: Reports: No Symptoms Neurological: Reports: No Symptoms Psychiatric: Reports: No Symptoms - Patient Data Vitals - Most Recent: Last Vital Signs Temp 97.5 F 08/05/20 08:00 Pulse 76 08/05/20 08:00 Resp 16 08/05/20 08:00 BP 160/74 H 08/05/20 08:00 Pulse Ox 94 L 08/05/20 08:00 Weight - Most Recent: 58.5 kg I&O - Last 24 Hours: Intake & Output 08/04/20 08/05/20 08/05/20 22:59 06:59 14:59 Intake Total 405 550 Output Total 550 350 Balance -145 200 Lab Results Last 24 Hours: Laboratory Results - last 24 hr 08/05/20 08/05/20 Range/Units 08:26 08:26 WBC 7.17 (4.0-11.0) K/uL RBC 3.19 L (4.30-5.90) M/uL Hgb 11.1 L (12.0-16.0) g/dL Hct 32.9 L (36.0-46.0) % MCV 103.1 H (80.0-98.0) fL MCH 34.8 H (27.0-32.0) pg MCHC 33.7 (31.0-37.0) g/dL RDW Std Deviation 43.6 (28.0-62.0) fl RDW Coeff of Otilia 12 (11.0-15.0) % Plt Count 178 (150-400) K/uL MPV 10.60 (7.40-12.00) fL Neut % (Auto) 42.8 L (48.0-80.0) % Lymph % (Auto) 37.7 (16.0-40.0) % Hunt % (Auto) 17.6 H (0.0-15.0) % Eos % (Auto) 1.5 (0.0-7.0) % Baso % (Auto) 0.4 (0.0-1.5) % Neut # (Auto) 3.1 (1.4-5.7) K/uL Lymph # (Auto) 2.7 H (0.6-2.4) K/uL Hunt # (Auto) 1.3 H (0.0-0.8) K/uL Eos # (Auto) 0.1 (0.0-0.7) K/uL Baso # (Auto) 0.0 (0.0-0.1) K/uL Sodium 137 (136-145) mmol/L Potassium 3.9 (3.5-5.1) mmol/L Chloride 106 (98-107) mmol/L Carbon Dioxide 23.6 (21.0-32.0) mmol/L BUN 8 (7.0-18.0) mg/dL Creatinine 0.6 (0.6-1.0) mg/dL Est Cr Clr Drug Dosing 67.91 mL/min Estimated GFR (MDRD) > 60.0 ml/min Glucose 88 (74-106) mg/dL Calcium 7.7 L (8.5-10.1) mg/dL Magnesium 1.9 (1.8-2.4) mg/dL Darwin Results Last 24 Hours: Microbiology 08/01/20 14:33 Urine Culture - Preliminary Urine Escherichia Coli Med Orders - Current: Current Medications Acetaminophen (Acetaminophen 325 Mg Tab) 650 mg PO Q4H PRN PRN Reason: Pain (mild 1-3) Azithromycin (Azithromycin 250 Mg Tab) 500 mg PO Q24H [facility] Last Admin: 06/24/21 20:59 Dose: 500 mg Documented by: Bisacodyl (Bisacodyl 10 Mg Supp) 10 mg RECTAL DAILY PRN PRN Reason: if no BM in 3 days Calcium Carbonate (Calcium Carbonate/Vitamin D3 1500 Mg-400 Units Tab) 1 tab PO DAILY [facility] Last Admin: 08/05/20 09:43 Dose: 1 tab Documented by: Calcium Carbonate/Glycine (Calcium Carbonate 500 Mg Tab.Chew) 1,000 mg PO Q2HR PRN PRN Reason: Indigestion Docusate Sodium (Docusate Sodium 100 Mg Cap) 100 mg PO BID [facility] Last Admin: 08/05/20 09:43 Dose: 100 mg Documented by: Folic Acid (Folic Acid 1 Mg Tab) 1 mg PO BEDTIME [facility] Last Admin: 08/04/20 20:59 Dose: 1 mg Documented by: Heparin Sodium (Porcine) (Heparin Sodium 5,000 Units/Ml Vial) 5,000 units SUBCUT Q12H [facility] Last Admin: 08/05/20 04:28 Dose: 5,000 units Documented by: Ceftriaxone Sodium/Dextrose 1 (gm/ Premix) 50 mls @ 100 mls/hr IV Q24H [facility] Last Admin: 08/04/20 16:01 Dose: 100 mls/hr Documented by: Lorazepam (Lorazepam 2 Mg/Ml Sdv) 0 mg IVPUSH Q2H PRN; Protocol PRN Reason: CIWAA assessment Ondansetron HCl (Ondansetron 4 Mg/2 Ml Sdv) 4 mg IVPUSH Q4H PRN PRN Reason: Nausea Oxycodone HCl (Oxycodone 5 Mg Tab) 5 mg PO Q6H PRN PRN Reason: Pain (moderate 4-6) Last Admin: 08/04/20 09:23 Dose: 5 mg Documented by: Polyethylene Glycol (Polyethylene Glycol 3350 Powder 17 Gm Packet) 17 gm PO DAILY PRN PRN Reason: Constipation Last Admin: 08/02/20 15:06 Dose: 17 gm Documented by: Sodium Chloride (Sodium Chloride 0.9% 2.5 Ml Syringe) 2.5 ml FLUSH ASDIRECTED PRN PRN Reason: Keep Vein Open Thiamine HCl (Thiamine 100 Mg Tab) 100 mg PO BEDTIME [facility] Last Admin: 08/04/20 20:59 Dose: 100 mg Documented by: Discontinued Medications Sodium Chloride (Normal Saline) 1,000 mls @ 250 mls/hr IV STAT ONE Stop: 08/01/20 16:44 Last Admin: 08/01/20 13:27 Dose: 250 mls/hr Documented by: Ceftriaxone Sodium/Dextrose 1 (gm/ Premix) 50 mls @ 100 mls/hr IV ONETIME ONE Stop: 08/01/20 15:39 Last Admin: 08/01/20 16:00 Dose: 100 mls/hr Documented by: Sodium Chloride (Normal Saline) 1,000 mls @ 125 mls/hr IV Q8H [facility] Last Admin: 08/03/20 13:34 Dose: Not Given Documented by: Magnesium Sulfate 4 gm/ Premix 100 mls @ 50 mls/hr IV ONETIME ONE Stop: 08/02/20 10:14 Last Admin: 08/02/20 08:25 Dose: 50 mls/hr Documented by: Pantoprazole Sodium 40 mg/ (Sodium Chloride) 10 mls @ 300 mls/hr IV NOW ONE Stop: 08/02/20 15:04 Last Admin: 08/02/20 16:25 Dose: 300 mls/hr Documented by: Magnesium Sulfate 2 gm/ Premix 50 mls @ 12.5 mls/hr IV ONETIME ONE Stop: 08/04/20 15:41 Last Admin: 08/04/20 12:04 Dose: 12.5 mls/hr Documented by: Ibuprofen (Ibuprofen 200 Mg Tab) 200 mg PO Q6H PRN PRN Reason: Pain (mild 1-3) Potassium Chloride (Potassium Chloride 20 Meq Tab.Er) 40 meq PO ONETIME ONE Stop: 08/02/20 08:16 Last Admin: 08/02/20 08:30 Dose: 40 meq Documented by: Potassium Chloride (Potassium Chloride 20 Meq Tab.Er) 40 meq PO ONETIME ONE Stop: 08/03/20 08:01 Last Admin: 08/03/20 09:50 Dose: 40 meq Documented by: Potassium Chloride (Potassium Chloride 20 Meq Tab.Er) 40 meq PO ONETIME ONE Stop: 08/04/20 11:43 Last Admin: 08/04/20 12:04 Dose: 40 meq Documented by: Sodium Chloride (Sodium Chloride 0.9% 10 Ml Syringe) 10 ml FLUSH ASDIRECTED PRN PRN Reason: Keep Vein Open Last Admin: 08/01/20 13:27 Dose: 10 ml Documented by: Sodium Chloride (Sodium Chloride 0.9% 2.5 Ml Syringe) 2.5 ml FLUSH ASDIRECTED PRN PRN Reason: Keep Vein Open Last Admin: 08/01/20 13:27 Dose: 2.5 ml Documented by: - Exam General: Alert, Oriented, Cooperative, No Acute Distress Lungs: Clear to Auscultation, Normal Respiratory Effort Cardiovascular: Regular Rate, Regular Rhythm GI/Abdominal Exam: Normal Bowel Sounds, Soft, Non-Tender Back Exam: Normal Inspection, Full Range of Motion Extremities: Normal Inspection, Normal Range of Motion, Non-Tender, No Pedal Edema Neurological: No New Focal Deficit Psy/Mental Status: Alert, Normal Affect, Normal Mood - Patient Data Lab Results Last 24 hrs: Laboratory Results - last 24 hr 08/05/20 08/05/20 Range/Units 08:26 08:26 WBC 7.17 (4.0-11.0) K/uL RBC 3.19 L (4.30-5.90) M/uL Hgb 11.1 L (12.0-16.0) g/dL Hct 32.9 L (36.0-46.0) % MCV 103.1 H (80.0-98.0) fL MCH 34.8 H (27.0-32.0) pg MCHC 33.7 (31.0-37.0) g/dL RDW Std Deviation 43.6 (28.0-62.0) fl RDW Coeff of Otilia 12 (11.0-15.0) % Plt Count 178 (150-400) K/uL MPV 10.60 (7.40-12.00) fL Neut % (Auto) 42.8 L (48.0-80.0) % Lymph % (Auto) 37.7 (16.0-40.0) % Hunt % (Auto) 17.6 H (0.0-15.0) % Eos % (Auto) 1.5 (0.0-7.0) % Baso % (Auto) 0.4 (0.0-1.5) % Neut # (Auto) 3.1 (1.4-5.7) K/uL Lymph # (Auto) 2.7 H (0.6-2.4) K/uL Hunt # (Auto) 1.3 H (0.0-0.8) K/uL Eos # (Auto) 0.1 (0.0-0.7) K/uL Baso # (Auto) 0.0 (0.0-0.1) K/uL Sodium 137 (136-145) mmol/L Potassium 3.9 (3.5-5.1) mmol/L Chloride 106 (98-107) mmol/L Carbon Dioxide 23.6 (21.0-32.0) mmol/L BUN 8 (7.0-18.0) mg/dL Creatinine 0.6 (0.6-1.0) mg/dL Est Cr Clr Drug Dosing 67.91 mL/min Estimated GFR (MDRD) > 60.0 ml/min Glucose 88 (74-106) mg/dL Calcium 7.7 L (8.5-10.1) mg/dL Magnesium 1.9 (1.8-2.4) mg/dL Result Diagrams: 08/05/20 08:26 08/05/20 08:26 Darwin Results Last 24 hrs: Microbiology 08/01/20 14:33 Urine Culture - Preliminary Urine Escherichia Coli Sepsis Event Note - Evaluation Sepsis Screening Result: No Definite Risk - Focused Exam Vital Signs: Vital Signs Temp Pulse Resp BP Pulse Ox 08/05/20 08:00 97.5 F 76 16 160/74 H 94 L 08/05/20 04:00 98.5 F 75 16 128/63 96 08/05/20 00:59 98.5 F 77 18 132/74 96 - Problem List & Annotations (1) Fall SNOMED Code(s): 4127831, 864753142 Code(s): W19.XXXA - UNSPECIFIED FALL, INITIAL ENCOUNTER Status: Acute Current Visit: Yes Qualifiers: Encounter type: initial encounter Qualified Code(s): W19.XXXA - Unspecified fall, initial encounter (2) Urinary tract infection SNOMED Code(s): 39888548 Code(s): N39.0 - URINARY TRACT INFECTION, SITE NOT SPECIFIED Status: Acute Current Visit: Yes Qualifiers: Urinary tract infection type: acute cystitis Hematuria presence: without hematuria Qualified Code(s): N30.00 - Acute cystitis without hematuria (3) Anterolisthesis SNOMED Code(s): 468199496 Code(s): M43.10 - SPONDYLOLISTHESIS, SITE UNSPECIFIED Status: Acute Current Visit: Yes (4) Fracture of lumbar spine without cord injury SNOMED Code(s): 77764202, 036842689 Code(s): S32.009A - UNSP FRACTURE OF UNSP LUMBAR VERTEBRA, INIT FOR CLOS FX Status: Acute Current Visit: Yes (5) Self-care deficit SNOMED Code(s): 953590967 Code(s): Z78.9 - OTHER SPECIFIED HEALTH STATUS Status: Acute Current Visit: Yes (6) Thoracic compression fracture SNOMED Code(s): 152044613 Code(s): S22.000A - WEDGE COMPRESSION FRACTURE OF UNSP THORACIC VERTEBRA, IN IT Status: Chronic Current Visit: Yes Qualifiers: Thoracic vertebra fracture level: T12 (7) Depression SNOMED Code(s): 59023736 Code(s): F32.9 - MAJOR DEPRESSIVE DISORDER, SINGLE EPISODE, UNSPECIFIED Status: Chronic Current Visit: Yes (8) CAP (community acquired pneumonia) SNOMED Code(s): 276299007 Code(s): J18.9 - PNEUMONIA, UNSPECIFIED ORGANISM Status: Acute Current Visit: Yes Qualifiers: Laterality: left Lung location: lower lobe of lung Qualified Code(s): J18.9 - Pneumonia, unspecified organism - Problem List Review Problem List Initiated/Reviewed/Updated: Yes - Plan Plan:: This 79-year-old female admitted with recent fall along with acute on chronic low back pain 1. Acute on chronic back pain - showing continued improvement able to walk today with minimal assistance. -T12 compression fracture was noted previously, T10 appears to be remote as well. New L1 endplate compression fracture along with anterolisthesis of L 4 on L5 is noted. -Pain control with Tylenol as needed along with low dose Motrin - Oxycodone for severe pain - Trial lidocaine patch -PT to evaluate and treat -Supplement calcium and vitamin D - PCP to set up Dexa scan 2. CAP -Left lower lung lobe opacity. -Continue Rocephin and azithromycin 3. UTI -E. coli UTI, DARWIN pending - Continue Rocephin 4. Daily alcohol use -Denies withdrawal in the past -Thiamine and folic acid supplementation daily -Monitor CIWAA in case of withdrawals VTE prophylaxis: Heparin Consults: Case Management/social work for placement CODE STATUS: Full code Dispo: Likely home in am PT to work on stairs today
[2020-08-05] MEDS: Lidocaine 5% 700 MG Patch TRDERM SCH (10:59)
[2020-08-05] MEDS: oxyCODONE 5 MG Tab PO PRN ×2 (11:46→18:03)
[2020-08-05] MEDS: cefTRIAXone 1 GM in Premix Bag 1 BAG IV SCH (15:23)
[2020-08-05] MEDS: Thiamine 100 MG Tab PO SCH (21:24)
[2020-08-05] MEDS: Azithromycin 250 MG Tab PO SCH (21:24)
[2020-08-05] MEDS: Folic Acid 1 MG Tab PO SCH (21:24)
[2020-08-06] MEDS: Heparin Sodium 5,000 Units/ML Vial SUBCUT SCH (04:47)
[2020-08-06] MEDS: oxyCODONE 5 MG Tab PO PRN ×2 (04:47→12:51)
[2020-08-06] MEDS ORDERED: Magnesium Oxide 400 MG Tab PO ONE (08:44)
[2020-08-06] MEDS: Docusate Sodium 100 MG Cap PO SCH (08:53)
[2020-08-06] MEDS: Calcium Carbonate/Vitamin D3 1500 MG-400 Units Tab PO SCH (08:56)
[2020-08-06] MEDS: Lidocaine 5% 700 MG Patch TRDERM SCH (10:16)
--- NOTE | 2020-08-06 12:03 | PCM.DCSUM1 ---
Discharge Summary - Hospital Course Diagnosis: Stroke: No - Discharge Data Discharge Date: 08/06/20 Discharge Disposition: Home, W Home Health Agency Condition: Stable - Referral to Home Health Date of Face to Face Encounter: 08/05/20 Reason for Homebound Status: Maryjo is homebound as she is unable to drive needs assistance of walker as well as caregiver to leave the house due to acute on chronic low back pain and other chronic conditions. Primary Care Physician: PCP None Skilled Need: Maryjo is in need of senior care to help monitor vital signs as well as med administration. She is also in need of physical therapy to evaluate and treat due to acute on chronic low back pain and increasing stren gth. She will also benefit from occupational therapy to evaluate abilities to perform ADLs and home safety evaluation. - Patient Summary/Data Consults: Consultations 08/01/20 16:05 Consult to Case Management/Hoop Maker [CONS] Routine PT Evaluation and Treatment [CONS] Routine - Patient Instructions Diet: Regular Diet as Tolerated Activity: No Strenuous Activities Driving: Do Not Drive Showering/Bathing: May Shower Notify Provider of: Fever, Increased Pain, Swelling and Redness, Drainage, Nausea and/or Vomiting - Discharge Plan *PRESCRIPTION DRUG MONITORING PROGRAM REVIEWED*: Not Applicable *COPY OF PRESCRIPTION DRUG MONITORING REPORT IN PATIENT BLAIR: Not Applicable Prescriptions/Med Rec: Calcium Carbonate/Vitamin D3 [Caltrate 600+D 1500 MG-400 Units] 1 tab PO DAILY #60 tablet levoFLOXacin [Levaquin] 750 mg PO DAILY #3 tab oxyCODONE 5 mg PO Q6H PRN #15 tablet PRN Reason: Pain Home Medications: Home Meds Acetaminophen [Tylenol] 650 mg PO Q4H PRN tablet 08/05/20 [Rx] Calcium Carbonate/Vitamin D3 [Caltrate 600+D 1500 MG-400 Units] 1 tab PO DAILY #60 tablet 08/05/20 [Rx] Docusate Sodium [Colace] 100 mg PO BID cap 08/05/20 [Rx] levoFLOXacin [Levaquin] 750 mg PO DAILY #3 tab 08/05/20 [Rx] oxyCODONE 5 mg PO Q6H PRN #15 tablet 08/05/20 [Rx] Oxygen Therapy Mode: Room Air Patient Handouts: Oxycodone tablets or capsules, Calcium Carbonate; Risedronate tablets, Lumbar Spine Fracture, Levofloxacin tablets Referrals: Debby Olson PA [Physician Supervisor [facility]] - 08/18/20 2:45 pm - Patient Data Vitals - Most Recent: Last Vital Signs Temp 36.3 C 08/06/20 08:00 Pulse 56 L 08/06/20 08:00 Resp 16 08/06/20 08:00 BP 117/74 08/06/20 08:00 Pulse Ox 95 08/06/20 08:00 Weight - Most Recent: 58.5 kg I&O - Last 24 hours: Intake & Output 08/05/20 08/06/20 08/06/20 22:59 06:59 14:59 Intake Total 810 450 Output Total 775 550 Balance 35 -100 JARED Results - Last 24 hrs: Microbiology 08/01/20 14:33 Urine Culture - Final Urine Escherichia Coli Med Orders - Current: Current Medications Acetaminophen (Acetaminophen 325 Mg Tab) 650 mg PO Q4H PRN PRN Reason: Pain (mild 1-3) Last Admin: 08/05/20 23:28 Dose: 650 mg Documented by: Azithromycin (Azithromycin 250 Mg Tab) 500 mg PO Q24H [facility] Last Admin: 08/05/20 21:24 Dose: 500 mg Documented by: Bisacodyl (Bisacodyl 10 Mg Supp) 10 mg RECTAL DAILY PRN PRN Reason: if no BM in 3 days Calcium Carbonate (Calcium Carbonate/Vitamin D3 1500 Mg-400 Units Tab) 1 tab PO DAILY [facility] Last Admin: 08/06/20 08:56 Dose: 1 tab Documented by: Calcium Carbonate/Glycine (Calcium Carbonate 500 Mg Tab.Chew) 1,000 mg PO Q2HR PRN PRN Reason: Indigestion Docusate Sodium (Docusate Sodium 100 Mg Cap) 100 mg PO BID [facility] Last Admin: 08/06/20 08:53 Dose: 100 mg Documented by: Folic Acid (Folic Acid 1 Mg Tab) 1 mg PO BEDTIME [facility] Last Admin: 08/05/20 21:24 Dose: 1 mg Documented by: Heparin Sodium (Porcine) (Heparin Sodium 5,000 Units/Ml Vial) 5,000 units SUBCUT Q12H [facility] Last Admin: 08/06/20 04:47 Dose: 5,000 units Documented by: Ceftriaxone Sodium/Dextrose 1 (gm/ Premix) 50 mls @ 100 mls/hr IV Q24H [facility] Last Admin: 08/05/20 15:23 Dose: 100 mls/hr Documented by: Lidocaine (Lidocaine 5% 700 Mg Patch) 700 mg TRDERM Q24H [facility] Last Admin: 08/06/20 10:16 Dose: 700 mg Documented by: Lorazepam (Lorazepam 2 Mg/Ml Sdv) 0 mg IVPUSH Q2H PRN; Protocol PRN Reason: CIWAA assessment Ondansetron HCl (Ondansetron 4 Mg/2 Ml Sdv) 4 mg IVPUSH Q4H PRN PRN Reason: Nausea Oxycodone HCl (Oxycodone 5 Mg Tab) 5 mg PO Q6H PRN PRN Reason: Pain (moderate 4-6) Last Admin: 08/06/20 04:47 Dose: 5 mg Documented by: Polyethylene Glycol (Polyethylene Glycol 3350 Powder 17 Gm Packet) 17 gm PO DAILY PRN PRN Reason: Constipation Last Admin: 08/02/20 15:06 Dose: 17 gm Documented by: Sodium Chloride (Sodium Chloride 0.9% 2.5 Ml Syringe) 2.5 ml FLUSH ASDIRECTED PRN PRN Reason: Keep Vein Open Thiamine HCl (Thiamine 100 Mg Tab) 100 mg PO BEDTIME [facility] Last Admin: 08/05/20 21:24 Dose: 100 mg Documented by: Discontinued Medications Sodium Chloride (Normal Saline) 1,000 mls @ 250 mls/hr IV STAT ONE Stop: 08/01/20 16:44 Last Admin: 08/01/20 13:27 Dose: 250 mls/hr Documented by: Ceftriaxone Sodium/Dextrose 1 (gm/ Premix) 50 mls @ 100 mls/hr IV ONETIME ONE Stop: 08/01/20 15:39 Last Admin: 08/01/20 16:00 Dose: 100 mls/hr Documented by: Sodium Chloride (Normal Saline) 1,000 mls @ 125 mls/hr IV Q8H [facility] Last Admin: 08/03/20 13:34 Dose: Not Given Documented by: Magnesium Sulfate 4 gm/ Premix 100 mls @ 50 mls/hr IV ONETIME ONE Stop: 08/02/20 10:14 Last Admin: 08/02/20 08:25 Dose: 50 mls/hr Documented by: Pantoprazole Sodium 40 mg/ (Sodium Chloride) 10 mls @ 300 mls/hr IV NOW ONE Stop: 08/02/20 15:04 Last Admin: 08/02/20 16:25 Dose: 300 mls/hr Documented by: Magnesium Sulfate 2 gm/ Premix 50 mls @ 12.5 mls/hr IV ONETIME ONE Stop: 08/04/20 15:41 Last Admin: 08/04/20 12:04 Dose: 12.5 mls/hr Documented by: Ibuprofen (Ibuprofen 200 Mg Tab) 200 mg PO Q6H PRN PRN Reason: Pain (mild 1-3) Magnesium Oxide (Magnesium Oxide 400 Mg Tab) 800 mg PO ONETIME ONE Stop: 08/06/20 08:45 Last Admin: 08/06/20 08:53 Dose: 800 mg Documented by: Potassium Chloride (Potassium Chloride 20 Meq Tab.Er) 40 meq PO ONETIME ONE Stop: 08/02/20 08:16 Last Admin: 08/02/20 08:30 Dose: 40 meq Documented by: Potassium Chloride (Potassium Chloride 20 Meq Tab.Er) 40 meq PO ONETIME ONE Stop: 08/03/20 08:01 Last Admin: 08/03/20 09:50 Dose: 40 meq Documented by: Potassium Chloride (Potassium Chloride 20 Meq Tab.Er) 40 meq PO ONETIME ONE Stop: 08/04/20 11:43 Last Admin: 08/04/20 12:04 Dose: 40 meq Documented by: Sodium Chloride (Sodium Chloride 0.9% 10 Ml Syringe) 10 ml FLUSH ASDIRECTED PRN PRN Reason: Keep Vein Open Last Admin: 08/01/20 13:27 Dose: 10 ml Documented by: Sodium Chloride (Sodium Chloride 0.9% 2.5 Ml Syringe) 2.5 ml FLUSH ASDIRECTED PRN PRN Reason: Keep Vein Open Last Admin: 08/01/20 13:27 Dose: 2.5 ml Documented by:
[2020-08-06 14:35] VITALS: BP 125/59; PULSE 75
== END 2020-08-06 13:30 | disposition home health service (06) | DRG 551 ==
LOC: MW.ED 12:37 → MW.MS 14:33
PROVIDERS: ADMIT Internal Medicine; ATTEND Internal Medicine
DX: S22.069A Unspecified fracture of T7-T8 vertebra, initial encounter for closed fracture (principal); S22.079A Unspecified fracture of T9-T10 vertebra, initial encounter for closed fracture; S22.089A Unspecified fracture of T11-T12 vertebra, initial encounter for closed fracture; S32.019A Unspecified fracture of first lumbar vertebra, initial encounter for closed fracture; J18.9 Pneumonia, unspecified organism; N30.00 Acute cystitis without hematuria; R53.1 Weakness; F10.20 Alcohol dependence, uncomplicated; W18.30XA Fall on same level, unspecified, initial encounter; F32.9 Major depressive disorder, single episode, unspecified; R91.8 Other nonspecific abnormal finding of lung field; M54.5 Low back pain; Z20.822 Contact with and (suspected) exposure to COVID-19; Y92.002 Bathroom of unspecified non-institutional (private) residence as the place of occurrence of the external cause; Z79.899 Other long term (current) drug therapy; M43.16 Spondylolisthesis, lumbar region
CPT/HCPCS: 36415; 70450; 72125; 72128; 72131; 80053; 82550; 83605; 84484; 85025; 85610; 99285; J7030; 71045; 71045-26; 80048; 81001; 83735; 87086; 87088; 87186; 93005; 97116-GP; 97162-GP; 97530-GP; 99284; A9270-GY; C9113; J0696; J1644; J3475; U0002